=== PATIENT | female | born 1990 | race Caucasian/White ===

== ENCOUNTER → 2017-10-30 | Outpatient (CLI) | payer MEDICAID | END | disposition home or self-care (01) | LOC: RADPV 09:39 | PROVIDERS: ATTEND Family Medicine | DX: M85.88 Other specified disorders of bone density and structure, other site (principal); M81.0 Age-related osteoporosis without current pathological fracture; E55.9 Vitamin D deficiency, unspecified | CPT/HCPCS: 77080 ==

== ENCOUNTER 2019-04-18 04:53 | Inpatient (IN) | payer MEDICAID ==
[~2019-04-18] VITALS: Ht 149.9 cm; Wt 46.5 kg
[2019-04-18] VITALS (11 sets, daily range): BP systolic 89–122; BP diastolic 29–74
[~2019-04-18 04:53] MED LIST: ACID1GRA GT; CARV6 GT; CHOL200078 GT; FLUC100T GT; IPRA3AMP24 IH; LOPE-202 GT; METR500 GT; PARO10TA71 GT; RISP1 GT
[2019-04-18] MEDS ORDERED: SUCCINYLCHOLINE CHLORIDE 20 MG/ML 10 ML VIAL ONE (04:59)
[2019-04-18] MEDS ORDERED: ROCURONIUM BROMIDE 10 MG/ML 5 ML VIAL ONE ×2 (04:59→05:00)
[2019-04-18] MEDS ORDERED: RAPID SEQUENCE KIT [RSI] 1 EACH KIT ONE (04:59)
[2019-04-18] MEDS ORDERED: ONDANSETRON HCL 4 MG/2 ML VIAL IVP ONE (05:00)
[2019-04-18] MEDS ORDERED: SODIUM CHLORIDE 0.9% 1,000 ML IV ONE (05:00)
[2019-04-18] MEDS ORDERED: PIPERACILLIN SODIUM/TAZOBACTAM 4.5 GM in DEXTROSE 5%-WATER 100 ML IV ONE (05:30)
[2019-04-18] MEDS ORDERED: ETOMIDATE 2 MG/ML 10 ML VIAL IVP ONE (05:45)
[2019-04-18] MEDS ORDERED: ROCURONIUM BROMIDE 10 MG/ML 5 ML VIAL IVP ONE (05:45)
[2019-04-18 05:58] LABS: BASOPHILS % (AUTO) 0.3 % (0.0-2.0); EOSINOPHILS % (AUTO) 2.4 % (1.0-6.0); HEMOGLOBIN 12.6 g/dL (12.0-16.0); LYMPHOCYTES # (AUTO) 0.8 K/uL (1.0-4.8); LYMPHOCYTES % (AUTO) 23.3 % (22.0-44.0); MEAN CORPUSCULAR HEMOGLOBIN 27.8 pg (26.0-34.0); MEAN CORPUSCULAR HGB CONC 33.1 G/dL (31.0-37.0); MEAN CORPUSCULAR VOLUME 84 fL (80-100); MONOCYTES # (AUTO) 0.1 K/uL (0.1-1.0); MONOCYTES % (AUTO) 1.7 % (2.0-9.0); NEUTROPHILS # (AUTO) 2.5 K/uL (1.8-7.7); NEUTROPHILS % (AUTO) 72.3 % (40.0-70.0); PLATELET COUNT (AUTO) 218 K/uL (150-450); RED BLOOD CELL COUNT(AUTO) 4.52 MIL/uL (4.00-5.20); RED CELL DISTRIBUTION WIDTH 15.7 % (11.5-14.5)
[2019-04-18] MEDS ORDERED: ACETAMINOPHEN 325 MG TABLET PO PRN (06:00)
[2019-04-18] MEDS ORDERED: PROPOFOL 1000 MG/ISO-OSM 100 ML IV PRN (06:00)
[2019-04-18] MEDS ORDERED: VANCOMYCIN HCL 1 GM/D5% WATER 200 ML IV ONE (06:00)
[2019-04-18] MEDS ORDERED: ONDANSETRON HCL 4 MG/2 ML VIAL IVP PRN ×2 (06:00→13:30)
[2019-04-18 06:01] LABS: PROTHROMBIN TIME 10.5 SEC (9.4-11.6)
[2019-04-18] MEDS ORDERED: PIPERACILLIN/TAZO 3.375 GM/D5W 50 ML IV ONE (06:15)
[2019-04-18 06:26] LABS: ANION GAP 4 mmol/L (8-16); CALCIUM, TOTAL 8.9 mg/dL (8.8-10.5); CARBON DIOXIDE 33 mmol/L (22-29); CHLORIDE 100 mmol/L (98-107); CREATININE 0.38 mg/dL (0.60-1.30); GLOMERULAR FILTR. RATE CALC > 60 mL/min (>60); GLUCOSE,RANDOM 131 mg/dL (70-110); SODIUM SERUM 137 mmol/L (136-145); UREA NITROGEN, BLOOD 16 mg/dL (7-18)
[2019-04-18 06:34] LABS: LACTIC ACID 0.8 mmol/L (0.4-2.0)
[2019-04-18 06:37] LABS: ALANINE AMINOTRANSFERASE 48 U/L (12-78); ALBUMIN 2.9 g/dL (3.4-5.0); ALKALINE PHOSPHATASE 236 U/L (46-116); ASPARTATE AMINOTRANSFERASE 27 U/L (15-37); BILIRUBIN,TOTAL 0.5 mg/dL (0.1-1.0); HCG,QUANTITATIVE < 1 mIU/mL (0-6); TOTAL PROTEIN, SERUM 7.2 g/dL (6.4-8.2)
[2019-04-18] MEDS ORDERED: SODIUM CHLORIDE 0.9% 500 ML IV ONE (07:15)
[2019-04-18] MEDS ORDERED: LORazepam 2 MG/ML VIAL IVP ONE (08:30)
[2019-04-18 12:37] LABS: ABG BASE EXCESS 1.3 mmol/L (-2.0-3.0); ABG CARBOXYHEMOGLOBIN 0.8 % (0.0-1.5); ABG HCO3 25.4 mmol/L (22.0-26.0); ABG METHEMOGLOBIN 0.3 % (0.0-1.5); ABG OXYGEN CONTENT 17.4 mL/dL (15.0-23.0); ABG OXYGEN SATURATION 99.3 % (95.0-98.0); ABG OXYHEMOGLOBIN 98.2 % (94.0-100.0); ABG PCO2 46 mmHg (35-45); ABG PH 7.375 (7.350-7.450); ABG TOTAL HEMOGLOBIN 12.2 G/dL (12.0-18.0); PO2, ARTERIAL BG 253.6 mmHg (92.0-100.0); SOURCE, BLOOD GAS ARTERIAL; TEMPERATURE, FAHRENHEIT, BG 100.6 FAHREN (96.0-98.6)
[2019-04-18 12:38] LABS: O2 DEVICE,BLOOD GAS VENTILATOR (ROOM AIR); PEEP,BG 5 cm H2O; SITE, BLOOD GAS RT RADIAL; VT, ABG 400 ml
[2019-04-18] MEDS ORDERED: HYDROCODONE/ACETAMINOPHEN 5-325 MG TABLET PO PRN (13:30)
[2019-04-18] MEDS ORDERED: ZOLPIDEM TARTRATE 5 MG TABLET PO PRN (13:30)
[2019-04-18] MEDS ORDERED: MAGNESIUM HYDROXIDE SUSPENSION 30 ML UDCUP PO PRN (13:30)
[2019-04-18] MEDS ORDERED: ALBUTEROL SULFATE 2.5 MG/0.5 ML NEB SOLUTION NEB PRN (13:30)
[2019-04-18] MEDS ORDERED: MORPHINE SULFATE 2 MG/ML SYRINGE IVP PRN (13:30)
[2019-04-18] MEDS ORDERED: BISACODYL 10 MG RECTAL RECTAL SUPPOSITORY PR PRN (13:30)
[2019-04-18] MEDS ORDERED: IPRATROPIUM BROMIDE 0.5 MG/2.5 ML NEB SOLUTION NEB PRN (13:30)
[2019-04-18] MEDS: ALBUTEROL SULFATE 2.5 MG/0.5 ML NEB SOLUTION NEB SCH ×2 (14:00→19:46)
[2019-04-18] MEDS: IPRATROPIUM BROMIDE 0.5 MG/2.5 ML NEB SOLUTION NEB SCH ×2 (14:00→19:46)
[2019-04-18] MEDS: CefTRIAXone 1 GM/DEXTROSE 50 ML IV SCH (14:48)
[2019-04-18] MEDS: PIPERACILLIN/TAZO 3.375 GM/D5W 50 ML IV SCH ×2 (14:49→20:03)
[2019-04-18] MEDS: SODIUM CHLORIDE 0.9% 1,000 ML IV SCH (16:07)
[2019-04-18] MEDS ORDERED: ETOMIDATE 2 MG/ML 10 ML VIAL IV ONE (17:01)
[2019-04-18] MEDS: VANCOMYCIN HCL 750 MG in DEXTROSE 5%-WATER 250 ML IV SCH ×2 (17:21→22:55)
[2019-04-18] MEDS: MethylPREDNISolone SOD SUCC 125 MG/2 ML VIAL IVP SCH (17:22)
[2019-04-18] MEDS: HEPARIN SODIUM,PORCINE 5,000 UNITS/ML VIAL SQ SCH (17:22)
[2019-04-18] MEDS: DOCUSATE SODIUM 100 MG CAPSULE PO SCH (20:51)
[2019-04-19] VITALS: BP 108/68
[2019-04-19] MEDS: HEPARIN SODIUM,PORCINE 5,000 UNITS/ML VIAL SQ SCH ×3 (00:06→16:12)
[2019-04-19] MEDS: MethylPREDNISolone SOD SUCC 125 MG/2 ML VIAL IVP SCH ×4 (00:07→18:17)
[2019-04-19] MEDS: PIPERACILLIN/TAZO 3.375 GM/D5W 50 ML IV SCH ×3 (01:53→13:43)
[2019-04-19] MEDS: ALBUTEROL SULFATE 2.5 MG/0.5 ML NEB SOLUTION NEB SCH ×4 (02:07→19:17)
[2019-04-19] MEDS: IPRATROPIUM BROMIDE 0.5 MG/2.5 ML NEB SOLUTION NEB SCH ×4 (02:07→19:17)
[2019-04-19 04:00] VITALS: BP 108/68
[2019-04-19] MEDS: SODIUM CHLORIDE 0.9% 1,000 ML IV SCH ×2 (04:15→18:21)
[2019-04-19 05:43] LABS: ANION GAP 7 mmol/L (8-16); CALCIUM, TOTAL 8.6 mg/dL (8.8-10.5); CARBON DIOXIDE 29 mmol/L (22-29); CHLORIDE 104 mmol/L (98-107); CREATININE 0.38 mg/dL (0.60-1.30); GLOMERULAR FILTR. RATE CALC > 60 mL/min (>60); GLUCOSE,RANDOM 132 mg/dL (70-110); SODIUM SERUM 140 mmol/L (136-145); UREA NITROGEN, BLOOD 7 mg/dL (7-18); VANCOMYCIN,RANDOM 15.9 mcg/mL (25.0-50.0)
[2019-04-19 05:48] LABS: POTASSIUM 2.8 mmol/L (3.5-5.1)
[2019-04-19] MEDS: VANCOMYCIN HCL 750 MG in DEXTROSE 5%-WATER 250 ML IV SCH (06:33)
[2019-04-19] MEDS: POTASSIUM CHL 10 MEQ/WATER 50 ML IV PRN ×4 (06:40→10:51)
[2019-04-19] MEDS: PROPOFOL 1000 MG/ISO-OSM 100 ML IV PRN ×3 (06:40→20:14)
[2019-04-19 08:00] VITALS: BP 105/67
[2019-04-19] MEDS: DOCUSATE SODIUM 100 MG CAPSULE PO SCH ×2 (08:13→20:14)
[2019-04-19] MEDS: PANTOPRAZOLE SODIUM 40 MG DR TABLET PO SCH (08:13)
[2019-04-19 11:03] LABS: ABG A-A DIFF O2 112.3 mmHg (10-20.0); ABG BASE EXCESS 5.6 mmol/L (-2.0-3.0); ABG CARBOXYHEMOGLOBIN 0.2 % (0.0-1.5); ABG HCO3 28.8 mmol/L (22.0-26.0); ABG METHEMOGLOBIN 0.3 % (0.0-1.5); ABG OXYGEN CONTENT 15.5 mL/dL (15.0-23.0); ABG OXYGEN SATURATION 96.7 % (95.0-98.0); ABG OXYHEMOGLOBIN 96.2 % (94.0-100.0); ABG PCO2 46 mmHg (35-45); ABG PH 7.432 (7.350-7.450); ABG TOTAL HEMOGLOBIN 11.4 G/dL (12.0-18.0); PO2, ARTERIAL BG 84.8 mmHg (92.0-100.0); SOURCE, BLOOD GAS ARTERIAL; TEMPERATURE, FAHRENHEIT, BG 97.3 FAHREN (96.0-98.6)
[2019-04-19 11:06] LABS: O2 DEVICE,BLOOD GAS VENTILATOR (ROOM AIR); PEEP,BG 5 cm H2O; SITE, BLOOD GAS RT RADIAL; VT, ABG 400 ml
[2019-04-19 12:00] VITALS: BP 111/59
[2019-04-19] MEDS: CefTRIAXone 1 GM/DEXTROSE 50 ML IV SCH (13:44)
[2019-04-19] MEDS ORDERED: VANCOMYCIN HCL 1 GM/D5% WATER 200 ML IV SCH (15:00)
[2019-04-19 16:00] VITALS: BP_SYST 111; BP_SYST 118; BP_DIAS 66
[2019-04-19] MEDS: MetroNIDAZOLE 500 MG TABLET PO SCH (16:12)
[2019-04-19 20:00] VITALS: BP 126/74
[2019-04-19 20:14] LABS: APPEARANCE,URINE CLEAR (CLEAR); BILIRUBIN,URINE NEGATIVE (NEGATIVE); GLUCOSE, URINE (UA) NEGATIVE (NEGATIVE); KETONES,URINE 15 mg/dL (NEGATIVE); LEUKOCYTE ESTERASE ,URINE NEGATIVE (NEGATIVE); NITRATE,URINE NEGATIVE (NEGATIVE); OCCULT BLOOD,URINE NEGATIVE (NEGATIVE); PH,URINE 5.5 (5.0-8.0); PROTEIN,URINE TRACE (NEGATIVE); UROBILINOGEN,URINE 0.2 mg/dL (<=1.0)
[2019-04-19 20:20] LABS: BACTERIA,URINE Rare /HPF (None Seen); SQUAMOUS EPITHELIAL CELL,UR Few /LPF (None Seen)
[2019-04-19 20:24] LABS: INFLUENZA TYPE A NEGATIVE FOR TYPE A (NEGATIVE); INFLUENZA TYPE B NEGATIVE FOR TYPE B (NEGATIVE)
[2019-04-20] VITALS: BP 125/72
[2019-04-20] MEDS: HEPARIN SODIUM,PORCINE 5,000 UNITS/ML VIAL SQ SCH ×3 (00:15→20:37)
[2019-04-20] MEDS: MetroNIDAZOLE 500 MG TABLET PO SCH ×4 (00:15→23:08)
[2019-04-20] MEDS: MethylPREDNISolone SOD SUCC 125 MG/2 ML VIAL IVP SCH ×5 (00:16→23:08)
[2019-04-20 04:00] VITALS: BP 134/98
[2019-04-20] MEDS: SODIUM CHLORIDE 0.9% 1,000 ML IV SCH ×2 (05:22→17:22)
[2019-04-20 05:40] LABS: ANION GAP 9 mmol/L (8-16); CALCIUM, TOTAL 8.8 mg/dL (8.8-10.5); CARBON DIOXIDE 26 mmol/L (22-29); CHLORIDE 110 mmol/L (98-107); CREATININE 0.24 mg/dL (0.60-1.30); GLOMERULAR FILTR. RATE CALC > 60 mL/min (>60); GLUCOSE,RANDOM 115 mg/dL (70-110); POTASSIUM 3.5 mmol/L (3.5-5.1); SODIUM SERUM 145 mmol/L (136-145); UREA NITROGEN, BLOOD 15 mg/dL (7-18)
[2019-04-20] MEDS: POTASSIUM CHLORIDE 10% 40 MEQ/30 ML LIQUID UDCUP GT PRN ×2 (07:00→23:11)
[2019-04-20] MEDS: IPRATROPIUM BROMIDE 0.5 MG/2.5 ML NEB SOLUTION NEB SCH ×3 (07:20→19:44)
[2019-04-20] MEDS: ALBUTEROL SULFATE 2.5 MG/0.5 ML NEB SOLUTION NEB SCH ×3 (07:20→19:44)
[2019-04-20 08:00] VITALS: BP 117/62
[2019-04-20] MEDS: PANTOPRAZOLE SODIUM 40 MG DR TABLET PO SCH (08:01)
[2019-04-20] MEDS: DOCUSATE SODIUM 100 MG CAPSULE PO SCH ×2 (08:01→20:37)
[2019-04-20 12:00] VITALS: BP 116/54
[2019-04-20] MEDS: CefTRIAXone 1 GM/DEXTROSE 50 ML IV SCH (15:12)
[2019-04-20 16:00] VITALS: BP 143/86
[2019-04-20] MEDS ORDERED: SODIUM CHLORIDE 0.9% 250 ML IV ONE (17:29)
[2019-04-20] MEDS: PROPOFOL 1000 MG/ISO-OSM 100 ML IV PRN (17:39)
[2019-04-20 20:00] VITALS: BP 150/79
[2019-04-20] MEDS: LORazepam 2 MG/ML VIAL IM PRN (20:27)
[2019-04-20] MEDS: METOCLOPRAMIDE HCL 5 MG TABLET PEG SCH (20:37)
[2019-04-20] MEDS ORDERED: PNEUMOCOCCAL VACCINE POLYVALENT 0.5 ML VIAL [PPSV23] IM ONE (22:00)
[2019-04-20] MEDS ORDERED: INFLUENZA VIRUS VACCINE QVS 2019-20 (3YR+)/PF 60 MCG/0.5 ML SYRINGE IM ONE (22:00)
[2019-04-21] VITALS: BP 90/49
[2019-04-21] MEDS: PROPOFOL 1000 MG/ISO-OSM 100 ML IV PRN (01:29)
[2019-04-21] MEDS: ALBUTEROL SULFATE 2.5 MG/0.5 ML NEB SOLUTION NEB SCH ×4 (01:39→20:09)
[2019-04-21] MEDS: IPRATROPIUM BROMIDE 0.5 MG/2.5 ML NEB SOLUTION NEB SCH ×4 (01:39→20:09)
[2019-04-21] MEDS: LORazepam 2 MG/ML VIAL IM PRN ×3 (02:58→23:41)
[2019-04-21 04:00] VITALS: BP 109/62
[2019-04-21 05:20] LABS: BASOPHILS % (AUTO) 0.1 % (0.0-2.0); EOSINOPHILS % (AUTO) 0 % (1.0-6.0); HEMATOCRIT 33.6 % (36-46); HEMOGLOBIN 10.5 g/dL (12.0-16.0); LYMPHOCYTES # (AUTO) 2.3 K/uL (1.0-4.8); LYMPHOCYTES % (AUTO) 11.3 % (22.0-44.0); MEAN CORPUSCULAR HEMOGLOBIN 26.4 pg (26.0-34.0); MEAN CORPUSCULAR HGB CONC 31.1 G/dL (31.0-37.0); MEAN CORPUSCULAR VOLUME 85 fL (80-100); MONOCYTES # (AUTO) 0.9 K/uL (0.1-1.0); MONOCYTES % (AUTO) 4.4 % (2.0-9.0); NEUTROPHILS # (AUTO) 17.1 K/uL (1.8-7.7); NEUTROPHILS % (AUTO) 84.2 % (40.0-70.0); PLATELET COUNT (AUTO) 232 K/uL (150-450); RED BLOOD CELL COUNT(AUTO) 3.97 MIL/uL (4.00-5.20); RED CELL DISTRIBUTION WIDTH 15.3 % (11.5-14.5)
[2019-04-21] MEDS: MethylPREDNISolone SOD SUCC 125 MG/2 ML VIAL IVP SCH ×4 (05:21→23:13)
[2019-04-21 05:35] LABS: ANION GAP 8 mmol/L (8-16); CALCIUM, TOTAL 8.5 mg/dL (8.8-10.5); CARBON DIOXIDE 27 mmol/L (22-29); CHLORIDE 113 mmol/L (98-107); CREATININE 0.26 mg/dL (0.60-1.30); GLOMERULAR FILTR. RATE CALC > 60 mL/min (>60); GLUCOSE,RANDOM 143 mg/dL (70-110); SODIUM SERUM 148 mmol/L (136-145); UREA NITROGEN, BLOOD 16 mg/dL (7-18)
[2019-04-21] MEDS: SODIUM CHLORIDE 0.9% 1,000 ML IV SCH ×2 (05:37→19:05)
[2019-04-21 08:00] VITALS: BP 148/85
[2019-04-21 08:15] LABS: VANCOMYCIN,RANDOM < 0.1 mcg/mL (25.0-50.0)
[2019-04-21] MEDS: PANTOPRAZOLE SODIUM 40 MG DR TABLET PO SCH (08:54)
[2019-04-21] MEDS: METOCLOPRAMIDE HCL 5 MG TABLET PEG SCH ×2 (08:54→20:32)
[2019-04-21] MEDS: MetroNIDAZOLE 500 MG TABLET PO SCH ×3 (08:54→23:13)
[2019-04-21] MEDS: DOCUSATE SODIUM 100 MG CAPSULE PO SCH ×2 (08:54→20:32)
[2019-04-21] MEDS: HEPARIN SODIUM,PORCINE 5,000 UNITS/ML VIAL SQ SCH ×2 (08:55→20:32)
[2019-04-21 09:30] LABS: ABG BASE EXCESS -1.7 mmol/L (-2.0-3.0); ABG CARBOXYHEMOGLOBIN 0.1 % (0.0-1.5); ABG HCO3 23.1 mmol/L (22.0-26.0); ABG METHEMOGLOBIN 0.3 % (0.0-1.5); ABG OXYGEN CONTENT 14.7 mL/dL (15.0-23.0); ABG OXYGEN SATURATION 96.6 % (95.0-98.0); ABG OXYHEMOGLOBIN 96.2 % (94.0-100.0); ABG PCO2 41 mmHg (35-45); ABG PH 7.379 (7.350-7.450); ABG TOTAL HEMOGLOBIN 10.8 G/dL (12.0-18.0); O2 DEVICE,BLOOD GAS VENTILATOR (ROOM AIR); PEEP,BG 5 cm H2O; PO2, ARTERIAL BG 90.4 mmHg (92.0-100.0); SITE, BLOOD GAS RT RADIAL; SOURCE, BLOOD GAS ARTERIAL; TEMPERATURE, FAHRENHEIT, BG 98.6 FAHREN (96.0-98.6); VT, ABG 400 ml
[2019-04-21 12:00] VITALS: BP 128/75
[2019-04-21] MEDS: CefTRIAXone 1 GM/DEXTROSE 50 ML IV SCH (13:54)
[2019-04-21 16:00] VITALS: BP 124/77
[2019-04-21] MEDS: ACETAMINOPHEN 325 MG TABLET PO PRN (16:42)
[2019-04-21 20:00] VITALS: BP 160/78
[2019-04-22] VITALS: BP 120/70
[2019-04-22] MEDS: PROPOFOL 1000 MG/ISO-OSM 100 ML IV PRN ×2 (01:09→14:22)
[2019-04-22] MEDS: ALBUTEROL SULFATE 2.5 MG/0.5 ML NEB SOLUTION NEB SCH ×4 (02:23→19:29)
[2019-04-22] MEDS: IPRATROPIUM BROMIDE 0.5 MG/2.5 ML NEB SOLUTION NEB SCH ×4 (02:23→19:28)
[2019-04-22 04:00] VITALS: BP 139/61
[2019-04-22] MEDS: MethylPREDNISolone SOD SUCC 125 MG/2 ML VIAL IVP SCH (05:38)
[2019-04-22 05:41] LABS: BASOPHILS % (AUTO) 0.5 % (0.0-2.0); EOSINOPHILS % (AUTO) 0 % (1.0-6.0); HEMATOCRIT 32.6 % (36-46); HEMOGLOBIN 10.5 g/dL (12.0-16.0); LYMPHOCYTES # (AUTO) 2.7 K/uL (1.0-4.8); LYMPHOCYTES % (AUTO) 18.9 % (22.0-44.0); MEAN CORPUSCULAR HEMOGLOBIN 26.9 pg (26.0-34.0); MEAN CORPUSCULAR HGB CONC 32.2 G/dL (31.0-37.0); MEAN CORPUSCULAR VOLUME 84 fL (80-100); MONOCYTES # (AUTO) 1.1 K/uL (0.1-1.0); MONOCYTES % (AUTO) 7.7 % (2.0-9.0); NEUTROPHILS # (AUTO) 10.6 K/uL (1.8-7.7); NEUTROPHILS % (AUTO) 72.9 % (40.0-70.0); PLATELET COUNT (AUTO) 235 K/uL (150-450); RED BLOOD CELL COUNT(AUTO) 3.89 MIL/uL (4.00-5.20); RED CELL DISTRIBUTION WIDTH 15.6 % (11.5-14.5)
[2019-04-22 05:50] LABS: ANION GAP 4 mmol/L (8-16); CARBON DIOXIDE 31 mmol/L (22-29); CHLORIDE 110 mmol/L (98-107); CREATININE 0.36 mg/dL (0.60-1.30); GLOMERULAR FILTR. RATE CALC > 60 mL/min (>60); GLUCOSE,RANDOM 159 mg/dL (70-110); POTASSIUM 3.4 mmol/L (3.5-5.1); SODIUM SERUM 145 mmol/L (136-145); UREA NITROGEN, BLOOD 13 mg/dL (7-18)
[2019-04-22] MEDS: SODIUM CHLORIDE 0.9% 1,000 ML IV SCH ×2 (06:27→19:59)
[2019-04-22] MEDS ORDERED: SODIUM CHLORIDE 0.9% 250 ML IV ONE (06:39)
[2019-04-22] MEDS: POTASSIUM CHL 10 MEQ/WATER 50 ML IV PRN ×3 (06:41→09:18)
[2019-04-22 08:00] VITALS: BP 140/93
[2019-04-22] MEDS: DOCUSATE SODIUM 100 MG CAPSULE PO SCH ×2 (08:45→21:27)
[2019-04-22] MEDS: PANTOPRAZOLE SODIUM 40 MG DR TABLET PO SCH (08:45)
[2019-04-22] MEDS: MetroNIDAZOLE 500 MG TABLET PO SCH ×2 (08:45→16:00)
[2019-04-22] MEDS: METOCLOPRAMIDE HCL 5 MG TABLET PEG SCH ×2 (08:45→21:27)
[2019-04-22] MEDS: HEPARIN SODIUM,PORCINE 5,000 UNITS/ML VIAL SQ SCH ×2 (08:46→21:27)
[2019-04-22 12:00] VITALS: BP 115/65
[2019-04-22] MEDS ORDERED: LORazepam 2 MG/ML VIAL IM PRN (12:15)
[2019-04-22] MEDS: MethylPREDNISolone SOD SUCC 40 MG/ML VIAL IVP SCH ×2 (12:25→18:47)
[2019-04-22] MEDS: ACETAMINOPHEN 325 MG TABLET PO PRN (12:26)
[2019-04-22] MEDS ORDERED: LORazepam 2 MG/ML VIAL IVP PRN (13:45)
[2019-04-22] MEDS: CefTRIAXone 1 GM/DEXTROSE 50 ML IV SCH (14:14)
[2019-04-22 15:35] LABS: LEGIONELLA PNEUMO AG URINE Negative (Negative); ORGANISM ID Not indicated.; S PNEUMO SOURCE Urine; STREP PNEUMONIAE AG URINE Negative (Negative); STREP.PNEUMO BODY FLUID CULT. Not Indicated
[2019-04-22 16:00] VITALS: BP 152/88
[2019-04-22] MEDS: MULTIVITAMINS, THERAPEUTIC 15 ML UDCUP PEG SCH (19:58)
[2019-04-22 20:00] VITALS: BP 122/61
[2019-04-23] VITALS: BP 118/78
[2019-04-23] MEDS: MetroNIDAZOLE 500 MG TABLET PO SCH ×4 (00:13→23:49)
[2019-04-23] MEDS: MethylPREDNISolone SOD SUCC 40 MG/ML VIAL IVP SCH ×5 (00:13→23:49)
[2019-04-23] MEDS: IPRATROPIUM BROMIDE 0.5 MG/2.5 ML NEB SOLUTION NEB SCH ×4 (01:53→19:29)
[2019-04-23] MEDS: ALBUTEROL SULFATE 2.5 MG/0.5 ML NEB SOLUTION NEB SCH ×4 (01:54→19:29)
[2019-04-23] MEDS: PROPOFOL 1000 MG/ISO-OSM 100 ML IV PRN ×3 (02:26→18:59)
[2019-04-23 04:00] VITALS: BP 115/59
[2019-04-23 05:52] LABS: BASOPHILS % (AUTO) 0.1 % (0.0-2.0); EOSINOPHILS % (AUTO) 0.1 % (1.0-6.0); HEMATOCRIT 33.4 % (36-46); HEMOGLOBIN 10.7 g/dL (12.0-16.0); LYMPHOCYTES # (AUTO) 3.4 K/uL (1.0-4.8); LYMPHOCYTES % (AUTO) 20.7 % (22.0-44.0); MEAN CORPUSCULAR HEMOGLOBIN 26.8 pg (26.0-34.0); MEAN CORPUSCULAR HGB CONC 32.1 G/dL (31.0-37.0); MEAN CORPUSCULAR VOLUME 84 fL (80-100); MONOCYTES # (AUTO) 0.9 K/uL (0.1-1.0); MONOCYTES % (AUTO) 5.5 % (2.0-9.0); NEUTROPHILS # (AUTO) 12.3 K/uL (1.8-7.7); NEUTROPHILS % (AUTO) 73.6 % (40.0-70.0); PLATELET COUNT (AUTO) 241 K/uL (150-450); RED CELL DISTRIBUTION WIDTH 15.8 % (11.5-14.5)
[2019-04-23 06:07] LABS: ANION GAP 4 mmol/L (8-16); CARBON DIOXIDE 33 mmol/L (22-29); CHLORIDE 107 mmol/L (98-107); CREATININE 0.27 mg/dL (0.60-1.30); GLOMERULAR FILTR. RATE CALC > 60 mL/min (>60); GLUCOSE,RANDOM 150 mg/dL (70-110); POTASSIUM 3.3 mmol/L (3.5-5.1); SODIUM SERUM 144 mmol/L (136-145); UREA NITROGEN, BLOOD 7 mg/dL (7-18)
[2019-04-23] MEDS: POTASSIUM CHLORIDE 10% 40 MEQ/30 ML LIQUID UDCUP GT PRN (06:15)
[2019-04-23] MEDS: SODIUM CHLORIDE 0.9% 1,000 ML IV SCH ×2 (07:24→20:47)
[2019-04-23] MEDS: LORazepam 2 MG/ML VIAL IVP PRN (07:53)
[2019-04-23 08:00] VITALS: BP 146/74
[2019-04-23] MEDS: MULTIVITAMINS, THERAPEUTIC 15 ML UDCUP PEG SCH (08:19)
[2019-04-23] MEDS: PANTOPRAZOLE SODIUM 40 MG DR TABLET PO SCH (08:20)
[2019-04-23] MEDS: HEPARIN SODIUM,PORCINE 5,000 UNITS/ML VIAL SQ SCH ×2 (08:20→20:47)
[2019-04-23] MEDS: DOCUSATE SODIUM 100 MG CAPSULE PO SCH ×3 (08:21→20:50)
[2019-04-23 10:12] LABS: ABG A-A DIFF O2 114.9 mmHg (10-20.0); ABG BASE EXCESS 4.8 mmol/L (-2.0-3.0); ABG CARBOXYHEMOGLOBIN 0.5 % (0.0-1.5); ABG HCO3 28.3 mmol/L (22.0-26.0); ABG METHEMOGLOBIN 0.2 % (0.0-1.5); ABG OXYGEN CONTENT 16.4 mL/dL (15.0-23.0); ABG OXYGEN SATURATION 96.1 % (95.0-98.0); ABG OXYHEMOGLOBIN 95.4 % (94.0-100.0); ABG PCO2 44 mmHg (35-45); ABG PH 7.441 (7.350-7.450); ABG TOTAL HEMOGLOBIN 12.2 G/dL (12.0-18.0); PO2, ARTERIAL BG 83.7 mmHg (92.0-100.0); SOURCE, BLOOD GAS ARTERIAL; TEMPERATURE, FAHRENHEIT, BG 99.1 FAHREN (96.0-98.6)
[2019-04-23 10:13] LABS: O2 DEVICE,BLOOD GAS VENTILATOR (ROOM AIR); PEEP,BG 5 cm H2O; SITE, BLOOD GAS RT RADIAL; VT, ABG 500 ml
[2019-04-23 12:00] VITALS: BP 102/57
[2019-04-23] MEDS: CeFAZolin 2 GM/DEXTROSE 50 ML IV SCH ×2 (15:03→22:14)
[2019-04-23 16:00] VITALS: BP 109/59
[2019-04-23 20:00] VITALS: BP 109/74
[2019-04-23] MEDS ORDERED: SODIUM CHLORIDE 0.9% 250 ML IV ONE (23:09)
[2019-04-24] VITALS (7 sets, daily range): BP systolic 107–145; BP diastolic 41–92
[2019-04-24] MEDS: ALBUTEROL SULFATE 2.5 MG/0.5 ML NEB SOLUTION NEB SCH ×4 (02:12→19:48)
[2019-04-24] MEDS: IPRATROPIUM BROMIDE 0.5 MG/2.5 ML NEB SOLUTION NEB SCH ×4 (02:12→19:48)
[2019-04-24] MEDS: ACETAMINOPHEN 325 MG TABLET PO PRN (02:55)
[2019-04-24] MEDS: PROPOFOL 1000 MG/ISO-OSM 100 ML IV PRN (03:44)
[2019-04-24 05:32] LABS: BASOPHILS % (AUTO) 0.1 % (0.0-2.0); EOSINOPHILS % (AUTO) 0.1 % (1.0-6.0); HEMATOCRIT 34.9 % (36-46); HEMOGLOBIN 11.1 g/dL (12.0-16.0); LYMPHOCYTES # (AUTO) 3.2 K/uL (1.0-4.8); LYMPHOCYTES % (AUTO) 20.8 % (22.0-44.0); MEAN CORPUSCULAR HEMOGLOBIN 26.5 pg (26.0-34.0); MEAN CORPUSCULAR HGB CONC 31.8 G/dL (31.0-37.0); MEAN CORPUSCULAR VOLUME 83 fL (80-100); MONOCYTES # (AUTO) 0.9 K/uL (0.1-1.0); NEUTROPHILS # (AUTO) 11.4 K/uL (1.8-7.7); PLATELET COUNT (AUTO) 292 K/uL (150-450); RED CELL DISTRIBUTION WIDTH 16.2 % (11.5-14.5)
[2019-04-24 05:39] LABS: ANION GAP 4 mmol/L (8-16); CALCIUM, TOTAL 8.3 mg/dL (8.8-10.5); CARBON DIOXIDE 34 mmol/L (22-29); CHLORIDE 106 mmol/L (98-107); CREATININE 0.22 mg/dL (0.60-1.30); GLOMERULAR FILTR. RATE CALC > 60 mL/min (>60); GLUCOSE,RANDOM 150 mg/dL (70-110); POTASSIUM 3.3 mmol/L (3.5-5.1); SODIUM SERUM 144 mmol/L (136-145); UREA NITROGEN, BLOOD 9 mg/dL (7-18)
[2019-04-24] MEDS: CeFAZolin 2 GM/DEXTROSE 50 ML IV SCH ×3 (05:39→21:42)
[2019-04-24] MEDS: MethylPREDNISolone SOD SUCC 40 MG/ML VIAL IVP SCH ×3 (05:39→18:46)
[2019-04-24] MEDS: POTASSIUM CHLORIDE 10% 40 MEQ/30 ML LIQUID UDCUP GT PRN ×2 (06:33→09:33)
[2019-04-24] MEDS: MetroNIDAZOLE 500 MG TABLET PO SCH ×2 (08:59→16:20)
[2019-04-24] MEDS: PANTOPRAZOLE SODIUM 40 MG DR TABLET PO SCH (09:00)
[2019-04-24] MEDS: DOCUSATE SODIUM 100 MG CAPSULE PO SCH ×2 (09:00→21:00)
[2019-04-24] MEDS: MULTIVITAMINS, THERAPEUTIC 15 ML UDCUP PEG SCH (09:00)
[2019-04-24] MEDS: HEPARIN SODIUM,PORCINE 5,000 UNITS/ML VIAL SQ SCH ×2 (09:00→21:00)
[2019-04-24] MEDS: SODIUM CHLORIDE 0.9% 1,000 ML IV SCH ×2 (09:01→21:42)
[2019-04-24 09:26] LABS: ABG A-A DIFF O2 119.1 mmHg (10-20.0); ABG BASE EXCESS 9.4 mmol/L (-2.0-3.0); ABG CARBOXYHEMOGLOBIN 0.7 % (0.0-1.5); ABG HCO3 31.8 mmol/L (22.0-26.0); ABG METHEMOGLOBIN 0.3 % (0.0-1.5); ABG OXYGEN CONTENT 17.2 mL/dL (15.0-23.0); ABG OXYGEN SATURATION 94.7 % (95.0-98.0); ABG OXYHEMOGLOBIN 93.8 % (94.0-100.0); ABG PCO2 49 mmHg (35-45); ABG PH 7.453 (7.350-7.450); CPAP, BG 5 cm H2O; O2 DEVICE,BLOOD GAS VENTILATOR (ROOM AIR); PO2, ARTERIAL BG 73.9 mmHg (92.0-100.0); PRESSURE SUPPORT, BG 10 cm H2O; SITE, BLOOD GAS RT RADIAL; SOURCE, BLOOD GAS ARTERIAL; TEMPERATURE, FAHRENHEIT, BG 98.7 FAHREN (96.0-98.6); VENT MODE, BG CPAP (ROOM AIR)
[2019-04-24 14:31] LABS: POTASSIUM 4.4 mmol/L (3.5-5.1)
[2019-04-24] MEDS: LORazepam 2 MG/ML VIAL IVP PRN (16:18)
[2019-04-25] VITALS (7 sets, daily range): BP systolic 99–130; BP diastolic 53–83
[2019-04-25] MEDS: MetroNIDAZOLE 500 MG TABLET PO SCH ×3 (00:13→15:11)
[2019-04-25] MEDS: MethylPREDNISolone SOD SUCC 40 MG/ML VIAL IVP SCH ×4 (00:13→17:58)
[2019-04-25] MEDS: IPRATROPIUM BROMIDE 0.5 MG/2.5 ML NEB SOLUTION NEB SCH ×4 (02:24→20:18)
[2019-04-25] MEDS: ALBUTEROL SULFATE 2.5 MG/0.5 ML NEB SOLUTION NEB SCH ×4 (02:24→20:18)
[2019-04-25 04:55] LABS: BASOPHILS % (AUTO) 0.1 % (0.0-2.0); EOSINOPHILS % (AUTO) 0.1 % (1.0-6.0); HEMATOCRIT 37.5 % (36-46); HEMOGLOBIN 11.9 g/dL (12.0-16.0); LYMPHOCYTES # (AUTO) 2.3 K/uL (1.0-4.8); LYMPHOCYTES % (AUTO) 12.5 % (22.0-44.0); MEAN CORPUSCULAR HEMOGLOBIN 26.7 pg (26.0-34.0); MEAN CORPUSCULAR HGB CONC 31.8 G/dL (31.0-37.0); MEAN CORPUSCULAR VOLUME 84 fL (80-100); MONOCYTES # (AUTO) 0.9 K/uL (0.1-1.0); MONOCYTES % (AUTO) 5.2 % (2.0-9.0); NEUTROPHILS # (AUTO) 14.9 K/uL (1.8-7.7); NEUTROPHILS % (AUTO) 82.1 % (40.0-70.0); PLATELET COUNT (AUTO) 374 K/uL (150-450); RED BLOOD CELL COUNT(AUTO) 4.46 MIL/uL (4.00-5.20); RED CELL DISTRIBUTION WIDTH 15.8 % (11.5-14.5)
[2019-04-25 05:07] LABS: ANION GAP 3 mmol/L (8-16); CALCIUM, TOTAL 8.6 mg/dL (8.8-10.5); CARBON DIOXIDE 31 mmol/L (22-29); CHLORIDE 104 mmol/L (98-107); CREATININE 0.33 mg/dL (0.60-1.30); GLOMERULAR FILTR. RATE CALC > 60 mL/min (>60); GLUCOSE,RANDOM 149 mg/dL (70-110); POTASSIUM 3.9 mmol/L (3.5-5.1); SODIUM SERUM 138 mmol/L (136-145); UREA NITROGEN, BLOOD 9 mg/dL (7-18)
[2019-04-25] MEDS: POTASSIUM CHLORIDE 10% 40 MEQ/30 ML LIQUID UDCUP GT PRN (05:33)
[2019-04-25] MEDS: CeFAZolin 2 GM/DEXTROSE 50 ML IV SCH ×3 (06:02→21:02)
[2019-04-25] MEDS: PANTOPRAZOLE SODIUM 40 MG DR TABLET PO SCH (08:22)
[2019-04-25] MEDS: HEPARIN SODIUM,PORCINE 5,000 UNITS/ML VIAL SQ SCH ×2 (08:22→20:48)
[2019-04-25] MEDS: DOCUSATE SODIUM 100 MG CAPSULE PO SCH ×2 (08:23→20:46)
[2019-04-25] MEDS: MULTIVITAMINS, THERAPEUTIC 15 ML UDCUP PEG SCH (08:23)
[2019-04-25 13:10] LABS: C.DIFF TOXINS A&B, Stool Negative (Negative)
[2019-04-25 13:13] LABS: C.DIFF GDH ANTIGEN, Stool Positive (Negative)
[2019-04-25] MEDS ORDERED: SODIUM CHLORIDE 0.9% 250 ML IV ONE (20:53)
[2019-04-26] MEDS: MetroNIDAZOLE 500 MG TABLET PO SCH ×3 (00:56→16:26)
[2019-04-26] MEDS: MethylPREDNISolone SOD SUCC 40 MG/ML VIAL IVP SCH ×3 (00:56→11:24)
[2019-04-26 00:58] VITALS: BP 98/62
[2019-04-26] MEDS: IPRATROPIUM BROMIDE 0.5 MG/2.5 ML NEB SOLUTION NEB SCH ×4 (02:48→19:33)
[2019-04-26] MEDS: ALBUTEROL SULFATE 2.5 MG/0.5 ML NEB SOLUTION NEB SCH ×4 (02:48→19:33)
[2019-04-26 04:08] VITALS: BP 100/53
[2019-04-26] MEDS: CeFAZolin 2 GM/DEXTROSE 50 ML IV SCH (06:01)
[2019-04-26 06:39] LABS: BASOPHILS % (AUTO) 0.1 % (0.0-2.0); EOSINOPHILS % (AUTO) 0 % (1.0-6.0); HEMATOCRIT 35.9 % (36-46); HEMOGLOBIN 11.5 g/dL (12.0-16.0); LYMPHOCYTES # (AUTO) 2.7 K/uL (1.0-4.8); LYMPHOCYTES % (AUTO) 12.1 % (22.0-44.0); MEAN CORPUSCULAR HEMOGLOBIN 26.8 pg (26.0-34.0); MEAN CORPUSCULAR VOLUME 84 fL (80-100); MONOCYTES # (AUTO) 1.2 K/uL (0.1-1.0); MONOCYTES % (AUTO) 5.5 % (2.0-9.0); NEUTROPHILS # (AUTO) 18.2 K/uL (1.8-7.7); NEUTROPHILS % (AUTO) 82.3 % (40.0-70.0); PLATELET COUNT (AUTO) 437 K/uL (150-450); RED BLOOD CELL COUNT(AUTO) 4.29 MIL/uL (4.00-5.20); RED CELL DISTRIBUTION WIDTH 16.2 % (11.5-14.5)
[2019-04-26 07:45] VITALS: BP 107/55
[2019-04-26] MEDS: DOCUSATE SODIUM 100 MG CAPSULE PO SCH ×2 (09:00→21:20)
[2019-04-26] MEDS: PANTOPRAZOLE SODIUM 40 MG DR TABLET PO SCH (09:00)
[2019-04-26] MEDS: MULTIVITAMINS, THERAPEUTIC 15 ML UDCUP PEG SCH (10:22)
[2019-04-26] MEDS: HEPARIN SODIUM,PORCINE 5,000 UNITS/ML VIAL SQ SCH ×2 (10:23→21:20)
[2019-04-26 11:57] VITALS: BP 102/52
[2019-04-26] MEDS ORDERED: PredniSONE 10 MG TABLET PEG SCH (15:30)
[2019-04-26 20:56] VITALS: BP 100/49
[2019-04-27] VITALS (7 sets, daily range): BP systolic 108–133; BP diastolic 47–77
[2019-04-27] MEDS: MetroNIDAZOLE 500 MG TABLET PO SCH ×2 (00:07→09:30)
[2019-04-27] MEDS: IPRATROPIUM BROMIDE 0.5 MG/2.5 ML NEB SOLUTION NEB SCH ×4 (03:15→20:04)
[2019-04-27] MEDS: ALBUTEROL SULFATE 2.5 MG/0.5 ML NEB SOLUTION NEB SCH ×4 (03:15→20:04)
[2019-04-27] MEDS: ACETAMINOPHEN 325 MG TABLET PO PRN (05:06)
[2019-04-27 08:58] LABS: HEMATOCRIT 36.9 % (36-46); HEMOGLOBIN 11.8 g/dL (12.0-16.0); MEAN CORPUSCULAR HEMOGLOBIN 26.9 pg (26.0-34.0); MEAN CORPUSCULAR HGB CONC 31.9 G/dL (31.0-37.0); MEAN CORPUSCULAR VOLUME 84 fL (80-100); PLATELET COUNT (AUTO) 500 K/uL (150-450); RED BLOOD CELL COUNT(AUTO) 4.37 MIL/uL (4.00-5.20); RED CELL DISTRIBUTION WIDTH 16.1 % (11.5-14.5)
[2019-04-27] MEDS: DOCUSATE SODIUM 100 MG CAPSULE PO SCH ×2 (09:00→20:58)
[2019-04-27 09:07] LABS: BAND NEUTROPHILS % (MANUAL) 0 % (0-5)
[2019-04-27] MEDS: PredniSONE 20 MG TABLET PEG SCH (09:30)
[2019-04-27] MEDS: PANTOPRAZOLE SODIUM 40 MG DR TABLET PO SCH (09:30)
[2019-04-27 09:31] LABS: LYMPHOCYTES % (MANUAL) 29 % (22-44); MONOCYTES % (MANUAL) 6 % (2-9); PROMYELOCYTES % 1 (0-0); SEGMENTED NEUTROPHILS % 64 % (40-70)
[2019-04-27] MEDS: MULTIVITAMINS, THERAPEUTIC 15 ML UDCUP PEG SCH (09:31)
[2019-04-27] MEDS: HEPARIN SODIUM,PORCINE 5,000 UNITS/ML VIAL SQ SCH ×2 (09:31→20:57)
[2019-04-27] MEDS: VANCOMYCIN HCL 250 MG/5 ML SOLUTION ORAL.SYG GT SCH ×2 (10:43→18:34)
[2019-04-28] MEDS: VANCOMYCIN HCL 250 MG/5 ML SOLUTION ORAL.SYG GT SCH ×3 (00:13→12:53)
[2019-04-28] MEDS: ALBUTEROL SULFATE 2.5 MG/0.5 ML NEB SOLUTION NEB SCH ×3 (02:23→14:00)
[2019-04-28] MEDS: IPRATROPIUM BROMIDE 0.5 MG/2.5 ML NEB SOLUTION NEB SCH ×3 (02:23→14:00)
[2019-04-28 05:17] VITALS: BP 115/65
[2019-04-28 07:08] VITALS: BP 142/72
[2019-04-28 08:00] LABS: BASOPHILS % (AUTO) 0.1 % (0.0-2.0); EOSINOPHILS % (AUTO) 0.9 % (1.0-6.0); HEMOGLOBIN 11.6 g/dL (12.0-16.0); LYMPHOCYTES # (AUTO) 6.5 K/uL (1.0-4.8); LYMPHOCYTES % (AUTO) 29.5 % (22.0-44.0); MEAN CORPUSCULAR HGB CONC 32.1 G/dL (31.0-37.0); MEAN CORPUSCULAR VOLUME 84 fL (80-100); MONOCYTES # (AUTO) 1.2 K/uL (0.1-1.0); MONOCYTES % (AUTO) 5.6 % (2.0-9.0); NEUTROPHILS # (AUTO) 14.1 K/uL (1.8-7.7); NEUTROPHILS % (AUTO) 63.9 % (40.0-70.0); PLATELET COUNT (AUTO) 430 K/uL (150-450); RED BLOOD CELL COUNT(AUTO) 4.28 MIL/uL (4.00-5.20)
[2019-04-28] MEDS: MULTIVITAMINS, THERAPEUTIC 15 ML UDCUP PEG SCH (08:14)
[2019-04-28] MEDS: PredniSONE 20 MG TABLET PEG SCH (08:14)
[2019-04-28] MEDS: PANTOPRAZOLE SODIUM 40 MG DR TABLET PO SCH (08:14)
[2019-04-28] MEDS: HEPARIN SODIUM,PORCINE 5,000 UNITS/ML VIAL SQ SCH (08:15)
[2019-04-28] MEDS: DOCUSATE SODIUM 100 MG CAPSULE PO SCH (08:16)
[2019-04-28] MEDS: LORazepam 2 MG/ML VIAL IVP PRN (09:19)
[2019-04-28 11:41] VITALS: BP 117/63
[2019-04-28 11:58] LABS: GLUCOMETER DEV NAME(LOC) 5S.2A; GLUCOSE,POINT OF CARE 196 MG/DL (70-110)
[2019-04-28 15:26] VITALS: BP 102/58
[2019-04-28] MEDS ORDERED: ALBU8HFA IH ×2 (15:48→15:49)
[2019-04-28] MEDS ORDERED: MULT-1203 PEG (15:52)
[2019-04-28] MEDS ORDERED: PANT40TA25 PO (15:53)
[2019-04-28] MEDS ORDERED: PRED20 PO (15:55)
[2019-04-28] MEDS ORDERED: PRED5 PO (15:56)
[2019-04-28] MEDS ORDERED: PRED10 PO (15:56)
[2019-04-28] MEDS ORDERED: PRED1 PO (15:56)
[2019-04-28] MEDS ORDERED: VANC250C13 GT (15:59)
[2019-04-28] MEDS ORDERED: ACET-2247 PO (16:00)
[2019-04-28 18:05] LABS: GLUCOMETER DEV NAME(LOC) 5N.2; GLUCOSE,POINT OF CARE 129 MG/DL (70-110)
[2019-04-28 18:05] LABS: GLUCOMETER DEV NAME(LOC) 5N.2; GLUCOSE,POINT OF CARE 117 MG/DL (70-110)
== END 2019-04-28 19:10 | DRG 720 ==
LOC: EMS 04:54 → ICU 08:12 → 5S 04-25 18:50
PROVIDERS: ADMIT Hospitalist; ATTEND Hospitalist
PROC: 5A1955Z Respiratory Ventilation, Greater than 96 Consecutive Hours (ICD-10-PCS; principal; 2019-04-18)
PROC: 0BH17EZ Insertion of Endotracheal Airway into Trachea, Via Natural or Artificial Opening (ICD-10-PCS; 2019-04-18)
DX: A41.9 Sepsis, unspecified organism (principal); J96.01 Acute respiratory failure with hypoxia; J69.0 Pneumonitis due to inhalation of food and vomit; I95.9 Hypotension, unspecified; F84.2 Rett's syndrome; E55.9 Vitamin D deficiency, unspecified; J45.909 Unspecified asthma, uncomplicated; R21 Rash and other nonspecific skin eruption; E87.6 Hypokalemia; F20.9 Schizophrenia, unspecified; A04.72 Enterocolitis due to Clostridium difficile, not specified as recurrent; Z98.1 Arthrodesis status; Z79.899 Other long term (current) drug therapy; Z88.0 Allergy status to penicillin; Z88.8 Allergy status to other drugs, medicaments and biological substances
CPT/HCPCS: 31500; 36600; 82805; 83605; 84132; 84145; 87040; 87070; 87081; 87205; 87324; 87449; 87804; 87899; 93005; 94002; 94003; 94640; 99291; G0378; J0330; J0690; J0696; J1644; J2060; J2270; J2405; J2543; J2704; J2920; J2930; J3370; J3480; J3490; J7030; J7040; J7050; J7060

== ENCOUNTER 2019-07-28 02:18 | Inpatient (IN) | payer MEDICAID ==
[~2019-07-28] VITALS: Ht 152.4 cm; Wt 47.4 kg
[~2019-07-28 02:18] MED LIST changes: +ACET-2247 PO; +ALBU8HFA IH; -CARV6 GT; -IPRA3AMP24 IH; -METR500 GT; +MULT-1203 PEG; +PANT40TA25 PO; +PRED1 PO; +PRED10 PO; +PRED20 PO; +PRED5 PO; +VANC250C13 GT
[2019-07-28] MEDS ORDERED: AZITHROMYCIN 500 MG/NS 250 ML IV ONE (03:00)
[2019-07-28] MEDS ORDERED: *CLINICAL-CEFEPIME DOSING CLINICAL ONE ×2 (03:00→08:15)
[2019-07-28] MEDS ORDERED: SODIUM CHLORIDE 0.9% 1,400 ML IV ONE (03:01)
[2019-07-28] MEDS ORDERED: SULFAMETHOX/TRIMETH 20 ML in DEXTROSE 5%-WATER 250 ML IV ONE (03:15)
[2019-07-28] MEDS ORDERED: 0.9% SODIUM CHLORIDE 10 ML SYRINGE IVP PRN ×2 (03:15→07:00)
[2019-07-28] MEDS ORDERED: CEFEPIME HCL 1 GM in DEXTROSE 5%-WATER 50 ML IV ONE (03:30)
[2019-07-28 04:10] LABS: BASOPHILS % (AUTO) 0.3 % (0.0-2.0); EOSINOPHILS % (AUTO) 0.4 % (1.0-6.0); HEMATOCRIT 41.1 % (36-46); LYMPHOCYTES # (AUTO) 1.3 K/uL (1.0-4.8); LYMPHOCYTES % (AUTO) 5.4 % (22.0-44.0); MEAN CORPUSCULAR HEMOGLOBIN 27.4 pg (26.0-34.0); MEAN CORPUSCULAR HGB CONC 31.7 G/dL (31.0-37.0); MEAN CORPUSCULAR VOLUME 86 fL (80-100); MONOCYTES # (AUTO) 0.9 K/uL (0.1-1.0); MONOCYTES % (AUTO) 3.8 % (2.0-9.0); NEUTROPHILS # (AUTO) 22.1 K/uL (1.8-7.7); NEUTROPHILS % (AUTO) 90.1 % (40.0-70.0); PLATELET COUNT (AUTO) 321 K/uL (150-450); RED BLOOD CELL COUNT(AUTO) 4.76 MIL/uL (4.00-5.20); RED CELL DISTRIBUTION WIDTH 16.7 % (11.5-14.5)
[2019-07-28 04:11] LABS: APPEARANCE,URINE CLOUDY (CLEAR); BILIRUBIN,URINE NEGATIVE (NEGATIVE); GLUCOSE, URINE (UA) NEGATIVE (NEGATIVE); KETONES,URINE 40 mg/dL (NEGATIVE); LEUKOCYTE ESTERASE ,URINE SMALL (NEGATIVE); NITRATE,URINE NEGATIVE (NEGATIVE); OCCULT BLOOD,URINE NEGATIVE (NEGATIVE); PH,URINE 6.5 (5.0-8.0); PROTEIN,URINE NEGATIVE (NEGATIVE); UROBILINOGEN,URINE 0.2 mg/dL (<=1.0)
[2019-07-28 04:16] LABS: BACTERIA,URINE Moderate /HPF (None Seen); SQUAMOUS EPITHELIAL CELL,UR Moderate /LPF (None Seen)
[2019-07-28 04:21] LABS: PROTHROMBIN TIME 10.2 SEC (9.4-11.6)
[2019-07-28 04:25] LABS: ANION GAP 7 mmol/L (8-16); CARBON DIOXIDE 32 mmol/L (22-29); CHLORIDE 103 mmol/L (98-107); CREATININE 0.42 mg/dL (0.60-1.30); GLOMERULAR FILTR. RATE CALC > 60 mL/min (>60); GLUCOSE,RANDOM 157 mg/dL (70-110); POTASSIUM 3.1 mmol/L (3.5-5.1); SODIUM SERUM 142 mmol/L (136-145); UREA NITROGEN, BLOOD 12 mg/dL (7-18)
[2019-07-28] MEDS ORDERED: MethylPREDNISolone SOD SUCC 125 MG/2 ML VIAL IVP ONE (04:30)
[2019-07-28 04:33] LABS: LACTIC ACID 1.8 mmol/L (0.4-2.0)
[2019-07-28 04:43] LABS: ALANINE AMINOTRANSFERASE 36 U/L (12-78); ALBUMIN 2.7 g/dL (3.4-5.0); ALKALINE PHOSPHATASE 172 U/L (46-116); ASPARTATE AMINOTRANSFERASE 24 U/L (15-37); BILIRUBIN,TOTAL 0.4 mg/dL (0.1-1.0); TOTAL PROTEIN, SERUM 6.3 g/dL (6.4-8.2)
[2019-07-28] MEDS ORDERED: RAPID SEQUENCE KIT [RSI] 1 EACH KIT ONE (04:52)
[2019-07-28] MEDS ORDERED: ROCURONIUM BROMIDE 10 MG/ML 5 ML VIAL ONE (04:53)
[2019-07-28] MEDS ORDERED: ACETAMINOPHEN 325 MG TABLET PO PRN ×2 (07:00→08:15)
[2019-07-28] MEDS ORDERED: ONDANSETRON HCL 4 MG/2 ML VIAL IVP PRN (07:00)
[2019-07-28] MEDS: PROPOFOL 1000 MG/ISO-OSM 100 ML IV PRN ×2 (07:09→13:23)
[2019-07-28] MEDS ORDERED: FentaNYL CITRATE PF 500 MCG in DEXTROSE 5%-WATER 90 ML IV PRN (07:30)
[2019-07-28] MEDS ORDERED: POTASSIUM CHLORIDE 20 MEQ ER TABLET PO PRN (08:15)
[2019-07-28] MEDS ORDERED: SODIUM CHLORIDE 0.9% 1,000 ML IV ONE (08:15)
[2019-07-28] MEDS ORDERED: *CLINICAL-BACTRIM/SEPTRA IVPB DOSING CLINICAL ONE (08:15)
[2019-07-28] MEDS ORDERED: LEVALBUTEROL HCL 0.63 MG/3 ML NEB SOLUTION NEB ONE (08:15)
[2019-07-28] MEDS ORDERED: IPRATROPIUM BROMIDE 0.5 MG/2.5 ML NEB SOLUTION NEB ONE (08:15)
[2019-07-28 08:30] VITALS: BP 93/61
[2019-07-28 09:00] VITALS: BP 100/66
[2019-07-28 09:03] LABS: ABG A-A DIFF O2 288.5 mmHg (10-20.0); ABG BASE EXCESS 2.2 mmol/L (-2.0-3.0); ABG CARBOXYHEMOGLOBIN 0.5 % (0.0-1.5); ABG HCO3 26.1 mmol/L (22.0-26.0); ABG METHEMOGLOBIN 0.3 % (0.0-1.5); ABG OXYGEN CONTENT 17.7 mL/dL (15.0-23.0); ABG OXYGEN SATURATION 96.7 % (95.0-98.0); ABG OXYHEMOGLOBIN 95.9 % (94.0-100.0); ABG PCO2 44 mmHg (35-45); ABG PH 7.403 (7.350-7.450); ABG TOTAL HEMOGLOBIN 13.1 G/dL (12.0-18.0); PO2, ARTERIAL BG 89.5 mmHg (92.0-100.0); SITE, BLOOD GAS RT RADIAL; SOURCE, BLOOD GAS ARTERIAL; TEMPERATURE, FAHRENHEIT, BG 99.8 FAHREN (96.0-98.6)
[2019-07-28 09:04] LABS: O2 DEVICE,BLOOD GAS VENTILATOR (ROOM AIR); PEEP,BG 5 cm H2O; SPONTANEOUS VT, BG 391 ml; VT, ABG 450 ml
[2019-07-28 10:00] VITALS: BP 98/64
[2019-07-28] MEDS: FAMOTIDINE 20 MG TABLET PO SCH (10:11)
[2019-07-28] MEDS: DOCUSATE SODIUM 100 MG CAPSULE PO SCH ×2 (10:11→22:43)
[2019-07-28] MEDS: POTASSIUM CHL 10 MEQ/WATER 50 ML IV PRN ×3 (10:13→13:18)
[2019-07-28] MEDS ORDERED: SODIUM CHLORIDE 0.9% 250 ML IV ONE (10:36)
[2019-07-28 12:00] VITALS: BP 91/65
[2019-07-28] MEDS: SULFAMETHOX/TRIMETH 10 ML in DEXTROSE 5%-WATER 250 ML IV SCH ×2 (13:22→23:21)
[2019-07-28] MEDS: CEFEPIME HCL 1 GM in DEXTROSE 5%-WATER 50 ML IV SCH (15:13)
[2019-07-28] MEDS: HEPARIN SODIUM,PORCINE 5,000 UNITS/ML VIAL SQ SCH (15:15)
[2019-07-28 16:00] VITALS: BP 97/59
[2019-07-28] MEDS ORDERED: ETOMIDATE 2 MG/ML 10 ML VIAL IV ONE (16:58)
[2019-07-28] MEDS: IPRATROPIUM BROMIDE 0.5 MG/2.5 ML NEB SOLUTION NEB SCH (21:47)
[2019-07-28] MEDS: ALBUTEROL SULFATE 2.5 MG/0.5 ML NEB SOLUTION NEB SCH (21:47)
[2019-07-28] MEDS: BUDESONIDE 0.5 MG/2 ML NEB SOLUTION NEB SCH (21:59)
[2019-07-28] MEDS: FentaNYL CITRATE PF 500 MCG in DEXTROSE 5%-WATER 90 ML IV PRN (22:39)
[2019-07-29] MEDS: HEPARIN SODIUM,PORCINE 5,000 UNITS/ML VIAL SQ SCH ×3 (01:50→15:21)
[2019-07-29] MEDS: PROPOFOL 1000 MG/ISO-OSM 100 ML IV PRN ×3 (01:52→18:37)
[2019-07-29] MEDS: ALBUTEROL SULFATE 2.5 MG/0.5 ML NEB SOLUTION NEB SCH ×4 (02:31→19:51)
[2019-07-29] MEDS: IPRATROPIUM BROMIDE 0.5 MG/2.5 ML NEB SOLUTION NEB SCH ×4 (02:31→19:51)
[2019-07-29] MEDS: CEFEPIME HCL 1 GM in DEXTROSE 5%-WATER 50 ML IV SCH ×2 (03:46→15:21)
[2019-07-29] MEDS: SULFAMETHOX/TRIMETH 10 ML in DEXTROSE 5%-WATER 250 ML IV SCH ×2 (06:00→13:08)
[2019-07-29 06:26] LABS: PHOSPHORUS 3.1 mg/dL (2.5-4.9)
[2019-07-29 08:00] VITALS: BP 120/58
[2019-07-29] MEDS: BUDESONIDE 0.5 MG/2 ML NEB SOLUTION NEB SCH ×2 (08:06→19:51)
[2019-07-29] MEDS: FAMOTIDINE 20 MG TABLET PO SCH (08:08)
[2019-07-29] MEDS: DOCUSATE SODIUM 100 MG CAPSULE PO SCH ×2 (08:08→21:50)
[2019-07-29] MEDS: THIAMINE HCL 100 MG/ML 2ML VIAL IVP SCH (08:08)
[2019-07-29 08:12] LABS: ANION GAP 11 mmol/L (8-16); CALCIUM, TOTAL 8.8 mg/dL (8.8-10.5); CARBON DIOXIDE 21 mmol/L (22-29); CHLORIDE 107 mmol/L (98-107); CREATININE 0.43 mg/dL (0.60-1.30); GLOMERULAR FILTR. RATE CALC > 60 mL/min (>60); GLUCOSE,RANDOM 85 mg/dL (70-110); POTASSIUM 3.7 mmol/L (3.5-5.1); SODIUM SERUM 139 mmol/L (136-145); UREA NITROGEN, BLOOD 10 mg/dL (7-18)
[2019-07-29] MEDS: FentaNYL CITRATE PF 500 MCG in DEXTROSE 5%-WATER 90 ML IV PRN ×3 (09:31→21:51)
[2019-07-29 12:00] VITALS: BP 129/76
[2019-07-29 12:51] LABS: BASOPHILS % (AUTO) 0.4 % (0.0-2.0); EOSINOPHILS % (AUTO) 0.5 % (1.0-6.0); HEMATOCRIT 38.2 % (36-46); HEMOGLOBIN 11.8 g/dL (12.0-16.0); LYMPHOCYTES # (AUTO) 2.3 K/uL (1.0-4.8); LYMPHOCYTES % (AUTO) 10.7 % (22.0-44.0); MEAN CORPUSCULAR HGB CONC 30.8 G/dL (31.0-37.0); MEAN CORPUSCULAR VOLUME 87 fL (80-100); MONOCYTES # (AUTO) 1.4 K/uL (0.1-1.0); MONOCYTES % (AUTO) 6.5 % (2.0-9.0); NEUTROPHILS # (AUTO) 17.8 K/uL (1.8-7.7); NEUTROPHILS % (AUTO) 81.9 % (40.0-70.0); PLATELET COUNT (AUTO) 297 K/uL (150-450); RED BLOOD CELL COUNT(AUTO) 4.37 MIL/uL (4.00-5.20); RED CELL DISTRIBUTION WIDTH 17.2 % (11.5-14.5)
[2019-07-29] MEDS ORDERED: SODIUM CHLORIDE 0.9% 250 ML IV ONE (13:17)
[2019-07-29 16:00] VITALS: BP 110/74
[2019-07-29] MEDS: MetroNIDAZOLE 500 MG/NACL 100 ML IV SCH (17:22)
[2019-07-30] MEDS: HEPARIN SODIUM,PORCINE 5,000 UNITS/ML VIAL SQ SCH ×3 (01:21→16:59)
[2019-07-30] MEDS: MetroNIDAZOLE 500 MG/NACL 100 ML IV SCH ×3 (01:22→16:59)
[2019-07-30] MEDS: FentaNYL CITRATE PF 500 MCG in DEXTROSE 5%-WATER 90 ML IV PRN ×4 (01:23→19:02)
[2019-07-30] MEDS: IPRATROPIUM BROMIDE 0.5 MG/2.5 ML NEB SOLUTION NEB SCH ×3 (01:45→20:13)
[2019-07-30] MEDS: ALBUTEROL SULFATE 2.5 MG/0.5 ML NEB SOLUTION NEB SCH ×3 (01:45→20:12)
[2019-07-30] MEDS: CEFEPIME HCL 1 GM in DEXTROSE 5%-WATER 50 ML IV SCH ×2 (04:55→14:12)
[2019-07-30] MEDS: PROPOFOL 1000 MG/ISO-OSM 100 ML IV PRN ×4 (04:56→20:30)
[2019-07-30 08:00] VITALS: BP 129/78
[2019-07-30] MEDS: THIAMINE HCL 100 MG/ML 2ML VIAL IVP SCH (08:45)
[2019-07-30] MEDS: DOCUSATE SODIUM 100 MG CAPSULE PO SCH ×2 (08:45→20:37)
[2019-07-30] MEDS: FAMOTIDINE 20 MG TABLET PO SCH (08:46)
[2019-07-30 12:00] VITALS: BP 97/54
[2019-07-30 16:00] VITALS: BP 118/70
[2019-07-30 20:00] VITALS: BP 125/82
[2019-07-30] MEDS: BUDESONIDE 0.5 MG/2 ML NEB SOLUTION NEB SCH (20:13)
[2019-07-31] VITALS: BP 92/50
[2019-07-31] MEDS: HEPARIN SODIUM,PORCINE 5,000 UNITS/ML VIAL SQ SCH ×3 (00:10→16:02)
[2019-07-31] MEDS: MetroNIDAZOLE 500 MG/NACL 100 ML IV SCH ×3 (00:11→16:02)
[2019-07-31] MEDS: ALBUTEROL SULFATE 2.5 MG/0.5 ML NEB SOLUTION NEB SCH ×4 (02:29→20:41)
[2019-07-31] MEDS: IPRATROPIUM BROMIDE 0.5 MG/2.5 ML NEB SOLUTION NEB SCH ×4 (02:29→20:41)
[2019-07-31] MEDS: CEFEPIME HCL 1 GM in DEXTROSE 5%-WATER 50 ML IV SCH ×2 (03:10→14:18)
[2019-07-31 04:00] VITALS: BP 129/83
[2019-07-31] MEDS ORDERED: SODIUM CHLORIDE 0.9% 250 ML IV ONE (05:09)
[2019-07-31] MEDS: FentaNYL CITRATE PF 500 MCG in DEXTROSE 5%-WATER 90 ML IV PRN ×3 (05:28→22:48)
[2019-07-31 06:54] LABS: ALANINE AMINOTRANSFERASE 34 U/L (12-78); ALBUMIN 2.2 g/dL (3.4-5.0); ALKALINE PHOSPHATASE 129 U/L (46-116); ANION GAP 10 mmol/L (8-16); ASPARTATE AMINOTRANSFERASE 30 U/L (15-37); BILIRUBIN,TOTAL 0.3 mg/dL (0.1-1.0); CALCIUM, TOTAL 8.7 mg/dL (8.8-10.5); CARBON DIOXIDE 23 mmol/L (22-29); CHLORIDE 106 mmol/L (98-107); CREATININE 0.25 mg/dL (0.60-1.30); GLOMERULAR FILTR. RATE CALC > 60 mL/min (>60); GLUCOSE,RANDOM 104 mg/dL (70-110); POTASSIUM 3.2 mmol/L (3.5-5.1); SODIUM SERUM 139 mmol/L (136-145); TOTAL PROTEIN, SERUM 5.6 g/dL (6.4-8.2); UREA NITROGEN, BLOOD 5 mg/dL (7-18)
[2019-07-31] MEDS: POTASSIUM CHL 10 MEQ/WATER 50 ML IV PRN ×3 (07:28→09:19)
[2019-07-31] MEDS: PROPOFOL 1000 MG/ISO-OSM 100 ML IV PRN ×3 (07:29→20:15)
[2019-07-31] MEDS: BUDESONIDE 0.5 MG/2 ML NEB SOLUTION NEB SCH ×2 (07:45→20:41)
[2019-07-31 08:00] VITALS: BP 112/66
[2019-07-31] MEDS: FAMOTIDINE 20 MG TABLET PO SCH (08:01)
[2019-07-31] MEDS: DOCUSATE SODIUM 100 MG CAPSULE PO SCH ×2 (08:02→21:35)
[2019-07-31] MEDS: THIAMINE HCL 100 MG/ML 2ML VIAL IVP SCH (08:02)
[2019-07-31 12:00] VITALS: BP 136/81
[2019-07-31 16:00] VITALS: BP 113/69
[2019-07-31 20:00] VITALS: BP 109/74
[2019-08-01] VITALS: BP 114/76
[2019-08-01] MEDS ORDERED: SODIUM CHLORIDE 0.9% 250 ML IV ONE (00:22)
[2019-08-01] MEDS: HEPARIN SODIUM,PORCINE 5,000 UNITS/ML VIAL SQ SCH ×3 (00:31→15:49)
[2019-08-01] MEDS: MetroNIDAZOLE 500 MG/NACL 100 ML IV SCH ×3 (00:32→18:10)
[2019-08-01] MEDS: IPRATROPIUM BROMIDE 0.5 MG/2.5 ML NEB SOLUTION NEB SCH ×4 (01:24→20:29)
[2019-08-01] MEDS: ALBUTEROL SULFATE 2.5 MG/0.5 ML NEB SOLUTION NEB SCH ×4 (01:25→20:29)
[2019-08-01] MEDS: CefTRIAXone 1 GM/DEXTROSE 50 ML IV SCH (01:47)
[2019-08-01 04:00] VITALS: BP 92/53
[2019-08-01] MEDS: PROPOFOL 1000 MG/ISO-OSM 100 ML IV PRN (05:18)
[2019-08-01 05:47] LABS: BASOPHILS % (AUTO) 0.7 % (0.0-2.0); EOSINOPHILS % (AUTO) 3.7 % (1.0-6.0); LYMPHOCYTES # (AUTO) 3.2 K/uL (1.0-4.8); LYMPHOCYTES % (AUTO) 33.9 % (22.0-44.0); MEAN CORPUSCULAR HEMOGLOBIN 27.8 pg (26.0-34.0); MEAN CORPUSCULAR HGB CONC 32.5 G/dL (31.0-37.0); MEAN CORPUSCULAR VOLUME 86 fL (80-100); MONOCYTES # (AUTO) 0.6 K/uL (0.1-1.0); MONOCYTES % (AUTO) 5.9 % (2.0-9.0); NEUTROPHILS # (AUTO) 5.3 K/uL (1.8-7.7); NEUTROPHILS % (AUTO) 55.8 % (40.0-70.0); PLATELET COUNT (AUTO) 332 K/uL (150-450); RED BLOOD CELL COUNT(AUTO) 4.33 MIL/uL (4.00-5.20)
[2019-08-01] MEDS: FentaNYL CITRATE PF 500 MCG in DEXTROSE 5%-WATER 90 ML IV PRN ×4 (06:10→22:31)
[2019-08-01 07:22] LABS: ALANINE AMINOTRANSFERASE 40 U/L (12-78); ALBUMIN 2.2 g/dL (3.4-5.0); ALKALINE PHOSPHATASE 129 U/L (46-116); ANION GAP 14 mmol/L (8-16); ASPARTATE AMINOTRANSFERASE 50 U/L (15-37); BILIRUBIN,TOTAL 0.2 mg/dL (0.1-1.0); CARBON DIOXIDE 20 mmol/L (22-29); CHLORIDE 103 mmol/L (98-107); CREATININE 0.24 mg/dL (0.60-1.30); GLOMERULAR FILTR. RATE CALC > 60 mL/min (>60); GLUCOSE,RANDOM 99 mg/dL (70-110); POTASSIUM 3.7 mmol/L (3.5-5.1); SODIUM SERUM 137 mmol/L (136-145); TOTAL PROTEIN, SERUM 5.8 g/dL (6.4-8.2); UREA NITROGEN, BLOOD 7 mg/dL (7-18)
[2019-08-01] MEDS: BUDESONIDE 0.5 MG/2 ML NEB SOLUTION NEB SCH ×2 (07:57→20:29)
[2019-08-01 08:00] VITALS: BP 91/53
[2019-08-01] MEDS: METOCLOPRAMIDE HCL 5 MG/ML 2 ML VIAL IVP SCH ×2 (09:26→15:49)
[2019-08-01] MEDS: THIAMINE HCL 100 MG/ML 2ML VIAL IVP SCH (09:26)
[2019-08-01] MEDS: FAMOTIDINE 20 MG TABLET PO SCH (09:26)
[2019-08-01] MEDS: DOCUSATE SODIUM 100 MG CAPSULE PO SCH ×2 (09:26→20:56)
[2019-08-01 12:00] VITALS: BP 106/71
[2019-08-01 16:00] VITALS: BP 110/65
[2019-08-01 20:00] VITALS: BP 107/54
[2019-08-01] MEDS ORDERED: SODIUM CHLORIDE 0.9% 100 ML ONE (23:58)
[2019-08-02] VITALS (7 sets, daily range): BP systolic 96–124; BP diastolic 53–75
[2019-08-02] MEDS: METOCLOPRAMIDE HCL 5 MG/ML 2 ML VIAL IVP SCH ×4 (00:01→23:27)
[2019-08-02] MEDS: HEPARIN SODIUM,PORCINE 5,000 UNITS/ML VIAL SQ SCH ×4 (00:02→23:26)
[2019-08-02] MEDS: MetroNIDAZOLE 500 MG/NACL 100 ML IV SCH ×3 (00:58→16:42)
[2019-08-02] MEDS: CefTRIAXone 1 GM/DEXTROSE 50 ML IV SCH (01:55)
[2019-08-02] MEDS: ALBUTEROL SULFATE 2.5 MG/0.5 ML NEB SOLUTION NEB SCH ×4 (02:23→19:20)
[2019-08-02] MEDS: IPRATROPIUM BROMIDE 0.5 MG/2.5 ML NEB SOLUTION NEB SCH ×4 (02:23→19:20)
[2019-08-02] MEDS: FentaNYL CITRATE PF 500 MCG in DEXTROSE 5%-WATER 90 ML IV PRN ×6 (04:07→23:43)
[2019-08-02 05:17] LABS: BASOPHILS % (AUTO) 1.3 % (0.0-2.0); EOSINOPHILS % (AUTO) 4.9 % (1.0-6.0); HEMATOCRIT 38.2 % (36-46); HEMOGLOBIN 12.5 g/dL (12.0-16.0); LYMPHOCYTES % (AUTO) 29.1 % (22.0-44.0); MEAN CORPUSCULAR HEMOGLOBIN 27.9 pg (26.0-34.0); MEAN CORPUSCULAR HGB CONC 32.8 G/dL (31.0-37.0); MEAN CORPUSCULAR VOLUME 85 fL (80-100); MONOCYTES # (AUTO) 0.8 K/uL (0.1-1.0); MONOCYTES % (AUTO) 7.3 % (2.0-9.0); NEUTROPHILS % (AUTO) 57.4 % (40.0-70.0); PLATELET COUNT (AUTO) 353 K/uL (150-450); RED CELL DISTRIBUTION WIDTH 16.2 % (11.5-14.5)
[2019-08-02 05:33] LABS: ANION GAP 8 mmol/L (8-16); CALCIUM, TOTAL 8.4 mg/dL (8.8-10.5); CARBON DIOXIDE 26 mmol/L (22-29); CHLORIDE 103 mmol/L (98-107); CREATININE 0.28 mg/dL (0.60-1.30); GLOMERULAR FILTR. RATE CALC > 60 mL/min (>60); GLUCOSE,RANDOM 107 mg/dL (70-110); POTASSIUM 3.8 mmol/L (3.5-5.1); SODIUM SERUM 137 mmol/L (136-145); UREA NITROGEN, BLOOD 9 mg/dL (7-18)
[2019-08-02] MEDS: BUDESONIDE 0.5 MG/2 ML NEB SOLUTION NEB SCH ×2 (08:24→22:28)
[2019-08-02] MEDS ORDERED: MAGNESIUM SULFATE 4 GM/WATER 100 ML IV PRN (08:45)
[2019-08-02] MEDS ORDERED: MAGNESIUM OXIDE 400 MG TABLET PO PRN (08:45)
[2019-08-02] MEDS: DOCUSATE SODIUM 100 MG CAPSULE PO SCH ×2 (09:09→20:08)
[2019-08-02] MEDS: THIAMINE HCL 100 MG/ML 2ML VIAL IVP SCH (09:09)
[2019-08-02] MEDS: FAMOTIDINE 20 MG TABLET PO SCH (09:09)
[2019-08-02 09:20] LABS: ALBUMIN 2.4 g/dL (3.4-5.0)
[2019-08-02] MEDS ORDERED: SODIUM CHLORIDE 0.9% 250 ML IV ONE (10:15)
[2019-08-02] MEDS ORDERED: SODIUM CHLORIDE 0.9% 500 ML IV ONE (10:15)
[2019-08-02] MEDS: PROPOFOL 1000 MG/ISO-OSM 100 ML IV PRN ×3 (10:17→21:08)
[2019-08-02] MEDS: MAGNESIUM SULFATE 2 GM/WATER 50 ML IV PRN (11:35)
[2019-08-02] MEDS ORDERED: MAGNESIUM HYDROXIDE SUSPENSION 30 ML UDCUP PO PRN (16:15)
[2019-08-02] MEDS ORDERED: BISACODYL 10 MG RECTAL RECTAL SUPPOSITORY PR PRN (16:15)
[2019-08-03] VITALS (8 sets, daily range): BP systolic 86–105; BP diastolic 53–59
[2019-08-03] MEDS ORDERED: INFLUENZA VIRUS VACCINE QVS 2019-20 (3YR+)/PF 60 MCG/0.5 ML SYRINGE IM ONE (00:15)
[2019-08-03] MEDS: MetroNIDAZOLE 500 MG/NACL 100 ML IV SCH ×3 (01:41→16:57)
[2019-08-03] MEDS: CefTRIAXone 1 GM/DEXTROSE 50 ML IV SCH (01:42)
[2019-08-03] MEDS ORDERED: SODIUM CHLORIDE 0.9% 250 ML IV ONE ×2 (02:16→08:46)
[2019-08-03] MEDS: PROPOFOL 1000 MG/ISO-OSM 100 ML IV PRN ×4 (02:40→23:42)
[2019-08-03] MEDS: FentaNYL CITRATE PF 500 MCG in DEXTROSE 5%-WATER 90 ML IV PRN ×5 (02:41→20:42)
[2019-08-03] MEDS: ALBUTEROL SULFATE 2.5 MG/0.5 ML NEB SOLUTION NEB SCH ×4 (04:08→20:09)
[2019-08-03] MEDS: IPRATROPIUM BROMIDE 0.5 MG/2.5 ML NEB SOLUTION NEB SCH ×4 (04:08→20:09)
[2019-08-03 05:30] LABS: BASOPHILS % (AUTO) 0.4 % (0.0-2.0); HEMATOCRIT 33.9 % (36-46); HEMOGLOBIN 11.3 g/dL (12.0-16.0); LYMPHOCYTES # (AUTO) 3.7 K/uL (1.0-4.8); LYMPHOCYTES % (AUTO) 36.8 % (22.0-44.0); MEAN CORPUSCULAR HEMOGLOBIN 28.4 pg (26.0-34.0); MEAN CORPUSCULAR HGB CONC 33.3 G/dL (31.0-37.0); MEAN CORPUSCULAR VOLUME 85 fL (80-100); MONOCYTES # (AUTO) 0.7 K/uL (0.1-1.0); MONOCYTES % (AUTO) 7.5 % (2.0-9.0); NEUTROPHILS % (AUTO) 50.3 % (40.0-70.0); PLATELET COUNT (AUTO) 329 K/uL (150-450); RED BLOOD CELL COUNT(AUTO) 3.97 MIL/uL (4.00-5.20); RED CELL DISTRIBUTION WIDTH 15.9 % (11.5-14.5)
[2019-08-03 05:42] LABS: ANION GAP 9 mmol/L (8-16); CALCIUM, TOTAL 8.7 mg/dL (8.8-10.5); CARBON DIOXIDE 25 mmol/L (22-29); CHLORIDE 106 mmol/L (98-107); CREATININE 0.37 mg/dL (0.60-1.30); GLOMERULAR FILTR. RATE CALC > 60 mL/min (>60); GLUCOSE,RANDOM 142 mg/dL (70-110); POTASSIUM 3.2 mmol/L (3.5-5.1); SODIUM SERUM 140 mmol/L (136-145); UREA NITROGEN, BLOOD 8 mg/dL (7-18)
[2019-08-03] MEDS: BUDESONIDE 0.5 MG/2 ML NEB SOLUTION NEB SCH ×2 (07:53→20:09)
[2019-08-03] MEDS: HEPARIN SODIUM,PORCINE 5,000 UNITS/ML VIAL SQ SCH ×3 (08:00→23:40)
[2019-08-03] MEDS: METOCLOPRAMIDE HCL 5 MG/ML 2 ML VIAL IVP SCH ×3 (08:55→23:40)
[2019-08-03] MEDS: FAMOTIDINE 20 MG TABLET PO SCH (08:55)
[2019-08-03] MEDS: DOCUSATE SODIUM 100 MG CAPSULE PO SCH ×2 (08:56→20:42)
[2019-08-03] MEDS: THIAMINE HCL 100 MG/ML 2ML VIAL IVP SCH (08:57)
[2019-08-03] MEDS: POTASSIUM CHL 10 MEQ/WATER 50 ML IV PRN ×3 (11:35→13:40)
[2019-08-04] VITALS: BP 94/47
[2019-08-04] MEDS: MetroNIDAZOLE 500 MG/NACL 100 ML IV SCH ×3 (00:44→17:51)
[2019-08-04] MEDS: FentaNYL CITRATE PF 500 MCG in DEXTROSE 5%-WATER 90 ML IV PRN ×4 (01:26→19:02)
[2019-08-04] MEDS: IPRATROPIUM BROMIDE 0.5 MG/2.5 ML NEB SOLUTION NEB SCH ×4 (02:27→19:46)
[2019-08-04] MEDS: ALBUTEROL SULFATE 2.5 MG/0.5 ML NEB SOLUTION NEB SCH ×4 (02:27→19:46)
[2019-08-04] MEDS: CefTRIAXone 1 GM/DEXTROSE 50 ML IV SCH (02:39)
[2019-08-04 04:00] VITALS: BP 103/55
[2019-08-04 06:01] LABS: BASOPHILS % (AUTO) 0.4 % (0.0-2.0); EOSINOPHILS % (AUTO) 4.6 % (1.0-6.0); HEMATOCRIT 33.7 % (36-46); HEMOGLOBIN 10.9 g/dL (12.0-16.0); LYMPHOCYTES # (AUTO) 3.1 K/uL (1.0-4.8); LYMPHOCYTES % (AUTO) 27.1 % (22.0-44.0); MEAN CORPUSCULAR HEMOGLOBIN 27.8 pg (26.0-34.0); MEAN CORPUSCULAR HGB CONC 32.5 G/dL (31.0-37.0); MEAN CORPUSCULAR VOLUME 86 fL (80-100); MONOCYTES # (AUTO) 0.9 K/uL (0.1-1.0); MONOCYTES % (AUTO) 7.7 % (2.0-9.0); NEUTROPHILS # (AUTO) 6.8 K/uL (1.8-7.7); NEUTROPHILS % (AUTO) 60.2 % (40.0-70.0); PLATELET COUNT (AUTO) 327 K/uL (150-450); RED BLOOD CELL COUNT(AUTO) 3.93 MIL/uL (4.00-5.20)
[2019-08-04] MEDS: PROPOFOL 1000 MG/ISO-OSM 100 ML IV PRN ×3 (06:04→21:13)
[2019-08-04 06:10] LABS: ANION GAP 12 mmol/L (8-16); CALCIUM, TOTAL 8.5 mg/dL (8.8-10.5); CARBON DIOXIDE 22 mmol/L (22-29); CHLORIDE 109 mmol/L (98-107); CREATININE 0.28 mg/dL (0.60-1.30); GLOMERULAR FILTR. RATE CALC > 60 mL/min (>60); GLUCOSE,RANDOM 114 mg/dL (70-110); SODIUM SERUM 143 mmol/L (136-145); UREA NITROGEN, BLOOD 8 mg/dL (7-18)
[2019-08-04 08:00] VITALS: BP 110/68
[2019-08-04] MEDS: MAGNESIUM SULFATE 2 GM/WATER 50 ML IV PRN (08:06)
[2019-08-04] MEDS: FAMOTIDINE 20 MG TABLET PO SCH (08:06)
[2019-08-04] MEDS: THIAMINE HCL 100 MG/ML 2ML VIAL IVP SCH (08:07)
[2019-08-04] MEDS: HEPARIN SODIUM,PORCINE 5,000 UNITS/ML VIAL SQ SCH ×2 (08:07→15:54)
[2019-08-04] MEDS: METOCLOPRAMIDE HCL 5 MG/ML 2 ML VIAL IVP SCH ×2 (08:07→15:54)
[2019-08-04] MEDS: DOCUSATE SODIUM 100 MG CAPSULE PO SCH ×2 (08:07→20:59)
[2019-08-04] MEDS: BUDESONIDE 0.5 MG/2 ML NEB SOLUTION NEB SCH ×2 (08:37→20:12)
[2019-08-04] MEDS ORDERED: SODIUM CHLORIDE 0.9% 250 ML IV ONE ×2 (12:02→21:02)
[2019-08-04 12:39] VITALS: BP 94/51
[2019-08-04 16:00] VITALS: BP 100/52
[2019-08-04 20:00] VITALS: BP 101/51
[2019-08-04 21:35] LABS: PROTHROMBIN TIME 10.7 SEC (9.4-11.6)
[2019-08-05] VITALS: BP 99/52
[2019-08-05] MEDS: METOCLOPRAMIDE HCL 5 MG/ML 2 ML VIAL IVP SCH ×4 (00:05→23:22)
[2019-08-05] MEDS: MetroNIDAZOLE 500 MG/NACL 100 ML IV SCH ×3 (00:05→16:11)
[2019-08-05] MEDS: ALBUTEROL SULFATE 2.5 MG/0.5 ML NEB SOLUTION NEB SCH ×4 (01:21→19:41)
[2019-08-05] MEDS: IPRATROPIUM BROMIDE 0.5 MG/2.5 ML NEB SOLUTION NEB SCH ×4 (01:21→19:41)
[2019-08-05] MEDS: CefTRIAXone 1 GM/DEXTROSE 50 ML IV SCH (01:33)
[2019-08-05] MEDS: FentaNYL CITRATE PF 500 MCG in DEXTROSE 5%-WATER 90 ML IV PRN ×3 (02:36→23:46)
[2019-08-05 04:00] VITALS: BP 110/67
[2019-08-05] MEDS: PROPOFOL 1000 MG/ISO-OSM 100 ML IV PRN ×3 (05:34→20:31)
[2019-08-05 08:00] VITALS: BP 106/59
[2019-08-05] MEDS: BUDESONIDE 0.5 MG/2 ML NEB SOLUTION NEB SCH ×2 (08:43→19:40)
[2019-08-05] MEDS: DOCUSATE SODIUM 100 MG CAPSULE PO SCH ×2 (09:00→20:12)
[2019-08-05] MEDS: THIAMINE HCL 100 MG/ML 2ML VIAL IVP SCH (09:22)
[2019-08-05] MEDS: FAMOTIDINE 20 MG TABLET PO SCH (09:23)
[2019-08-05] MEDS ORDERED: VECURONIUM BROMIDE 10 MG/VIAL ONE (09:34)
[2019-08-05 12:00] VITALS: BP 107/68
[2019-08-05] MEDS ORDERED: VECURONIUM BROMIDE 10 MG/VIAL IVP ONE (12:00)
[2019-08-05 16:23] VITALS: BP 113/66
[2019-08-05 20:00] VITALS: BP 121/69
[2019-08-06] VITALS: BP 95/56
[2019-08-06] MEDS: MetroNIDAZOLE 500 MG/NACL 100 ML IV SCH ×3 (00:25→16:20)
[2019-08-06] MEDS ORDERED: SODIUM CHLORIDE 0.9% 250 ML IV ONE (00:32)
[2019-08-06] MEDS: CefTRIAXone 1 GM/DEXTROSE 50 ML IV SCH (01:36)
[2019-08-06] MEDS: ALBUTEROL SULFATE 2.5 MG/0.5 ML NEB SOLUTION NEB SCH ×4 (02:00→20:07)
[2019-08-06] MEDS: IPRATROPIUM BROMIDE 0.5 MG/2.5 ML NEB SOLUTION NEB SCH ×4 (02:00→20:07)
[2019-08-06] MEDS: PROPOFOL 1000 MG/ISO-OSM 100 ML IV PRN ×4 (03:41→21:39)
[2019-08-06 04:00] VITALS: BP 92/53
[2019-08-06 06:08] LABS: BASOPHILS % (AUTO) 0.6 % (0.0-2.0); EOSINOPHILS % (AUTO) 3.4 % (1.0-6.0); HEMATOCRIT 33.1 % (36-46); HEMOGLOBIN 10.9 g/dL (12.0-16.0); LYMPHOCYTES # (AUTO) 2.5 K/uL (1.0-4.8); LYMPHOCYTES % (AUTO) 24.9 % (22.0-44.0); MEAN CORPUSCULAR HEMOGLOBIN 28.3 pg (26.0-34.0); MEAN CORPUSCULAR HGB CONC 32.8 G/dL (31.0-37.0); MEAN CORPUSCULAR VOLUME 86 fL (80-100); MONOCYTES % (AUTO) 9.9 % (2.0-9.0); NEUTROPHILS # (AUTO) 6.1 K/uL (1.8-7.7); NEUTROPHILS % (AUTO) 61.2 % (40.0-70.0); PLATELET COUNT (AUTO) 346 K/uL (150-450); RED BLOOD CELL COUNT(AUTO) 3.84 MIL/uL (4.00-5.20); RED CELL DISTRIBUTION WIDTH 15.8 % (11.5-14.5)
[2019-08-06 06:20] LABS: ANION GAP 9 mmol/L (8-16); CARBON DIOXIDE 24 mmol/L (22-29); CHLORIDE 107 mmol/L (98-107); CREATININE 0.34 mg/dL (0.60-1.30); GLOMERULAR FILTR. RATE CALC > 60 mL/min (>60); GLUCOSE,RANDOM 116 mg/dL (70-110); POTASSIUM 3.8 mmol/L (3.5-5.1); SODIUM SERUM 140 mmol/L (136-145); UREA NITROGEN, BLOOD 7 mg/dL (7-18)
[2019-08-06] MEDS: BUDESONIDE 0.5 MG/2 ML NEB SOLUTION NEB SCH ×2 (07:21→20:07)
[2019-08-06 08:00] VITALS: BP 112/70
[2019-08-06 08:36] LABS: ABG A-A DIFF O2 116.3 mmHg (10-20.0); ABG BASE EXCESS -4.2 mmol/L (-2.0-3.0); ABG CARBOXYHEMOGLOBIN 0.6 % (0.0-1.5); ABG OXYGEN SATURATION 97.7 % (95.0-98.0); ABG OXYHEMOGLOBIN 97.1 % (94.0-100.0); ABG PCO2 30 mmHg (35-45); ABG PH 7.442 (7.350-7.450); ABG TOTAL HEMOGLOBIN 14.6 G/dL (12.0-18.0); PO2, ARTERIAL BG 98.6 mmHg (92.0-100.0); SITE, BLOOD GAS RT RADIAL; SOURCE, BLOOD GAS ARTERIAL; TEMPERATURE, FAHRENHEIT, BG 98.6 FAHREN (96.0-98.6)
[2019-08-06 08:37] LABS: O2 DEVICE,BLOOD GAS VENTILATOR (ROOM AIR); PEEP,BG 5 cm H2O; VT, ABG 450 ml
[2019-08-06] MEDS: METOCLOPRAMIDE HCL 5 MG/ML 2 ML VIAL IVP SCH ×3 (08:43→23:35)
[2019-08-06] MEDS: THIAMINE HCL 100 MG/ML 2ML VIAL IVP SCH (08:43)
[2019-08-06] MEDS: FAMOTIDINE 20 MG TABLET PO SCH (08:44)
[2019-08-06] MEDS: DOCUSATE SODIUM 100 MG CAPSULE PO SCH ×2 (08:44→19:08)
[2019-08-06] MEDS: FentaNYL CITRATE PF 500 MCG in DEXTROSE 5%-WATER 90 ML IV PRN ×2 (10:48→18:07)
[2019-08-06 12:00] VITALS: BP 118/69
[2019-08-06 16:00] VITALS: BP 128/73
[2019-08-06] MEDS ORDERED: LIDOCAINE 2% 30 ML JELLY TP ONE (16:38)
[2019-08-06] MEDS ORDERED: BENZOCAINE 20% 50 MCG/SPRAY 57 GM TP ONE (16:38)
[2019-08-06] MEDS ORDERED: ALBUTEROL SULFATE 2.5 MG/0.5 ML NEB SOLUTION NEB ONE (16:38)
[2019-08-06 19:19] LABS: C.DIFF TOXINS A&B, Stool Negative (Negative)
[2019-08-06 19:22] LABS: C.DIFF GDH ANTIGEN, Stool Positive (Negative)
[2019-08-06 20:00] VITALS: BP 112/65
[2019-08-06] MEDS: VANCOMYCIN HCL 125 MG/2.5 ML SOLUTION ORAL.SYG PEG SCH (23:35)
[2019-08-07] VITALS (8 sets, daily range): BP systolic 98–137; BP diastolic 52–96
[2019-08-07] MEDS: FentaNYL CITRATE PF 500 MCG in DEXTROSE 5%-WATER 90 ML IV PRN ×2 (00:33→12:00)
[2019-08-07] MEDS: MetroNIDAZOLE 500 MG/NACL 100 ML IV SCH ×2 (00:39→08:54)
[2019-08-07] MEDS ORDERED: SODIUM CHLORIDE 0.9% 100 ML ONE (00:44)
[2019-08-07] MEDS: CefTRIAXone 1 GM/DEXTROSE 50 ML IV SCH (01:24)
[2019-08-07] MEDS: ALBUTEROL SULFATE 2.5 MG/0.5 ML NEB SOLUTION NEB SCH ×4 (01:53→20:39)
[2019-08-07] MEDS: IPRATROPIUM BROMIDE 0.5 MG/2.5 ML NEB SOLUTION NEB SCH ×4 (01:53→20:39)
[2019-08-07] MEDS: PROPOFOL 1000 MG/ISO-OSM 100 ML IV PRN (04:49)
[2019-08-07] MEDS: VANCOMYCIN HCL 125 MG/2.5 ML SOLUTION ORAL.SYG PEG SCH ×3 (05:24→18:37)
[2019-08-07] MEDS: BUDESONIDE 0.5 MG/2 ML NEB SOLUTION NEB SCH ×2 (07:35→20:39)
[2019-08-07 08:52] LABS: BASOPHILS % (AUTO) 2.8 % (0.0-2.0); EOSINOPHILS % (AUTO) 3.6 % (1.0-6.0); HEMATOCRIT 35.2 % (36-46); HEMOGLOBIN 11.6 g/dL (12.0-16.0); LYMPHOCYTES # (AUTO) 2.8 K/uL (1.0-4.8); LYMPHOCYTES % (AUTO) 28.3 % (22.0-44.0); MEAN CORPUSCULAR HEMOGLOBIN 28.4 pg (26.0-34.0); MEAN CORPUSCULAR HGB CONC 32.8 G/dL (31.0-37.0); MEAN CORPUSCULAR VOLUME 87 fL (80-100); MONOCYTES % (AUTO) 9.6 % (2.0-9.0); NEUTROPHILS # (AUTO) 5.5 K/uL (1.8-7.7); NEUTROPHILS % (AUTO) 55.7 % (40.0-70.0); PLATELET COUNT (AUTO) 354 K/uL (150-450); RED BLOOD CELL COUNT(AUTO) 4.06 MIL/uL (4.00-5.20); RED CELL DISTRIBUTION WIDTH 15.7 % (11.5-14.5)
[2019-08-07] MEDS: THIAMINE HCL 100 MG/ML 2ML VIAL IVP SCH (08:55)
[2019-08-07] MEDS: METOCLOPRAMIDE HCL 5 MG/ML 2 ML VIAL IVP SCH ×2 (08:55→16:24)
[2019-08-07] MEDS: DOCUSATE SODIUM 100 MG CAPSULE PO SCH ×2 (08:56→19:10)
[2019-08-07] MEDS: FAMOTIDINE 20 MG TABLET PO SCH (08:56)
[2019-08-07 09:07] LABS: ANION GAP 12 mmol/L (8-16); CALCIUM, TOTAL 9.2 mg/dL (8.8-10.5); CARBON DIOXIDE 23 mmol/L (22-29); CHLORIDE 107 mmol/L (98-107); CREATININE 0.34 mg/dL (0.60-1.30); GLOMERULAR FILTR. RATE CALC > 60 mL/min (>60); GLUCOSE,RANDOM 126 mg/dL (70-110); POTASSIUM 4.1 mmol/L (3.5-5.1); SODIUM SERUM 142 mmol/L (136-145); UREA NITROGEN, BLOOD 11 mg/dL (7-18)
[2019-08-07] MEDS ORDERED: HYDROmorphone 2 MG/ML SYRINGE IVP PRN (16:00)
[2019-08-07] MEDS ORDERED: FentaNYL 25 MCG/HOUR PATCH TD SCH (16:30)
[2019-08-07] MEDS: MAGNESIUM SULFATE 2 GM/WATER 50 ML IV PRN (16:53)
[2019-08-08] MEDS: VANCOMYCIN HCL 125 MG/2.5 ML SOLUTION ORAL.SYG PEG SCH ×2 (02:15→06:22)
[2019-08-08] MEDS: METOCLOPRAMIDE HCL 5 MG/ML 2 ML VIAL IVP SCH ×3 (02:18→16:36)
[2019-08-08] MEDS: IPRATROPIUM BROMIDE 0.5 MG/2.5 ML NEB SOLUTION NEB SCH ×3 (02:26→13:58)
[2019-08-08] MEDS: ALBUTEROL SULFATE 2.5 MG/0.5 ML NEB SOLUTION NEB SCH ×3 (02:26→13:58)
[2019-08-08 05:06] VITALS: BP 125/82
[2019-08-08 06:25] LABS: BASOPHILS % (AUTO) 0.4 % (0.0-2.0); EOSINOPHILS % (AUTO) 0.9 % (1.0-6.0); HEMATOCRIT 38.9 % (36-46); LYMPHOCYTES # (AUTO) 1.7 K/uL (1.0-4.8); LYMPHOCYTES % (AUTO) 12.7 % (22.0-44.0); MEAN CORPUSCULAR HEMOGLOBIN 28.8 pg (26.0-34.0); MEAN CORPUSCULAR HGB CONC 33.5 G/dL (31.0-37.0); MEAN CORPUSCULAR VOLUME 86 fL (80-100); MONOCYTES # (AUTO) 0.7 K/uL (0.1-1.0); MONOCYTES % (AUTO) 5.2 % (2.0-9.0); NEUTROPHILS # (AUTO) 10.9 K/uL (1.8-7.7); NEUTROPHILS % (AUTO) 80.8 % (40.0-70.0); PLATELET COUNT (AUTO) 435 K/uL (150-450); RED BLOOD CELL COUNT(AUTO) 4.52 MIL/uL (4.00-5.20); RED CELL DISTRIBUTION WIDTH 15.5 % (11.5-14.5)
[2019-08-08 06:46] LABS: ANION GAP 12 mmol/L (8-16); CALCIUM, TOTAL 9.4 mg/dL (8.8-10.5); CARBON DIOXIDE 25 mmol/L (22-29); CHLORIDE 105 mmol/L (98-107); CREATININE 0.29 mg/dL (0.60-1.30); GLOMERULAR FILTR. RATE CALC > 60 mL/min (>60); GLUCOSE,RANDOM 124 mg/dL (70-110); POTASSIUM 3.8 mmol/L (3.5-5.1); SODIUM SERUM 142 mmol/L (136-145); UREA NITROGEN, BLOOD 11 mg/dL (7-18)
[2019-08-08 07:45] VITALS: BP 131/57
[2019-08-08] MEDS: BUDESONIDE 0.5 MG/2 ML NEB SOLUTION NEB SCH (08:39)
[2019-08-08] MEDS: FAMOTIDINE 20 MG TABLET PO SCH (08:41)
[2019-08-08] MEDS: DOCUSATE SODIUM 100 MG CAPSULE PO SCH (08:42)
[2019-08-08] MEDS: THIAMINE HCL 100 MG/ML 2ML VIAL IVP SCH (09:44)
[2019-08-08 10:37] VITALS: BP 128/75
[2019-08-08] MEDS: MAGNESIUM SULFATE 2 GM/WATER 50 ML IV PRN (11:26)
[2019-08-08 14:47] VITALS: BP 135/89
[2019-08-08] MEDS ORDERED: BUDE0.5A3 NEB (15:35)
[2019-08-08] MEDS ORDERED: FAMO20TA8 PO (15:38)
[2019-08-08] MEDS ORDERED: FENT-76 TD (15:40)
[2019-08-08] MEDS ORDERED: IPRNEB IH (15:41)
[2019-08-08] MEDS ORDERED: METO5TAB95 PO (15:42)
[2019-08-08] MEDS ORDERED: METR500 PO (15:43)
[2019-08-08] MEDS ORDERED: THIA100T67 IVP (15:44)
[2019-08-08] MEDS ORDERED: MetroNIDAZOLE 500 MG TABLET PO SCH (16:00)
== END 2019-08-08 18:45 | DRG 5 ==
LOC: EMS 02:19 → ICU 06:37 → 5S 08-07 23:00
PROVIDERS: ADMIT Internal Medicine; ATTEND Internal Medicine
PROC: 5A1955Z Respiratory Ventilation, Greater than 96 Consecutive Hours (ICD-10-PCS; principal; 2019-07-28)
PROC: 0BH17EZ Insertion of Endotracheal Airway into Trachea, Via Natural or Artificial Opening (ICD-10-PCS; 2019-07-28)
PROC: B54MZZA Ultrasonography of Right Upper Extremity Veins, Guidance (ICD-10-PCS; 2019-07-28)
PROC: 05HY33Z Insertion of Infusion Device into Upper Vein, Percutaneous Approach (ICD-10-PCS; 2019-07-28)
PROC: B54MZZA Ultrasonography of Right Upper Extremity Veins, Guidance (ICD-10-PCS; 2019-08-02)
PROC: 05HY33Z Insertion of Infusion Device into Upper Vein, Percutaneous Approach (ICD-10-PCS; 2019-08-02)
PROC: 0B113F4 Bypass Trachea to Cutaneous with Tracheostomy Device, Percutaneous Approach (ICD-10-PCS; 2019-08-05)
PROC: 0BJ08ZZ Inspection of Tracheobronchial Tree, Via Natural or Artificial Opening Endoscopic (ICD-10-PCS; 2019-08-05)
DX: A41.9 Sepsis, unspecified organism (principal); J69.0 Pneumonitis due to inhalation of food and vomit; E43 Unspecified severe protein-calorie malnutrition; F84.2 Rett's syndrome; J96.00 Acute respiratory failure, unspecified whether with hypoxia or hypercapnia; G80.9 Cerebral palsy, unspecified; N39.0 Urinary tract infection, site not specified; R13.10 Dysphagia, unspecified; A04.72 Enterocolitis due to Clostridium difficile, not specified as recurrent; E87.6 Hypokalemia; F20.9 Schizophrenia, unspecified; Z93.1 Gastrostomy status; Z98.1 Arthrodesis status; Z99.11 Dependence on respirator [ventilator] status; Z74.01 Bed confinement status
CPT/HCPCS: 36245; 36569; 36600; 76937; 82805; 83605; 83735; 84100; 84132; 87040; 87070; 87081; 87086; 87205; 87324; 87449; 87635; 93005; 94002; 94003; 94640; 96365; 99291; G0378; J0456; J0692; J0696; J1170; J1644; J2704; J2765; J2930; J3010; J3411; J3475; J3480; J3490; J7030; J7040; J7050; J7060

== ENCOUNTER → 2020-09-05 | Outpatient (CLI) | payer MEDICAID ==
[~2020-09-05] MED LIST changes: +ACET-2247 GT; -ACET-2247 PO; -ACID1GRA GT; +ARGI1POW13 GT; -CHOL200078 GT; +CLIN300C3 PO; +CLIN600P10 IV; +DOCU-275 PO; +FE PR; +FENT1PAT25 TD; -FLUC100T GT; +FLUT1DIS6 IH; +LEVO750T68 GT; -LOPE-202 GT; +MAGN400T7 GT; +MAGN400T7 PO; +METO5TAB95 GT; +MOM30 GT; -MULT-1203 PEG; +PANT20TA18 GT; -PANT40TA25 PO; -PARO10TA71 GT; -PRED1 PO; -PRED10 PO; -PRED20 PO; -PRED5 PO; -RISP1 GT; +THIA50TA13 GT; +TRIA15CR49 TP; -VANC250C13 GT
== END | disposition home or self-care (01) ==
LOC: RADPV 09:43
PROVIDERS: ATTEND Family Medicine
DX: M81.0 Age-related osteoporosis without current pathological fracture (principal); M85.80 Other specified disorders of bone density and structure, unspecified site
CPT/HCPCS: 77080

== ENCOUNTER 2022-11-13 06:16 | Day surgery (SDC) | payer OTHER ==
[~2022-11-13] VITALS: Ht 147.3 cm; Wt 55.0 kg
[~2022-11-13 06:16] MED LIST changes: +ALBU18HF12 IH; -ALBU8HFA IH; -CLIN300C3 PO; +CLIN300C58 PO; -DOCU-275 PO; +DOCU-385 PO; -FE PR; +MAGN-169 GT; -MOM30 GT; +NA P266E PR
[2022-11-13] MEDS ORDERED: RINGERS SOLUTION,LACTATED 1,000 ML IV ONE ×2 (06:30→07:36)
[2022-11-13 07:55] LABS: BASOPHILS % (AUTO) 0.5 % (0.0-2.0); EOSINOPHILS % (AUTO) 2.4 % (1.0-6.0); HEMATOCRIT 43.7 % (36-46); HEMOGLOBIN 14.6 g/dL (12.0-16.0); LYMPHOCYTES # (AUTO) 2.5 K/uL (1.0-4.8); LYMPHOCYTES % (AUTO) 29.1 % (22.0-44.0); MEAN CORPUSCULAR HEMOGLOBIN 30.9 pg (26.0-34.0); MEAN CORPUSCULAR HGB CONC 33.3 G/dL (31.0-37.0); MEAN CORPUSCULAR VOLUME 93 fL (80-100); MONOCYTES # (AUTO) 0.6 K/uL (0.1-1.0); MONOCYTES % (AUTO) 6.4 % (2.0-9.0); NEUTROPHILS # (AUTO) 5.3 K/uL (1.8-7.7); NEUTROPHILS % (AUTO) 61.6 % (40.0-70.0); PLATELET COUNT (AUTO) 254 K/uL (150-450); RED BLOOD CELL COUNT(AUTO) 4.72 MIL/uL (4.00-5.20); RED CELL DISTRIBUTION WIDTH 12.7 % (11.5-14.5)
[2022-11-13] MEDS ORDERED: BISA10SU11 PR (07:55)
[2022-11-13] MEDS ORDERED: ALEN70TA65 PO (07:55)
[2022-11-13] MEDS ORDERED: DIPH25CA53 GT (07:55)
[2022-11-13] MEDS ORDERED: GLYC1TAB27 GT (07:55)
[2022-11-13] MEDS ORDERED: BACL10TA GT (07:55)
[2022-11-13] MEDS ORDERED: BUDE0.5A NEB (07:55)
[2022-11-13 08:10] LABS: PROTHROMBIN TIME 10.9 SEC (9.4-11.6)
[2022-11-13 08:18] LABS: ANION GAP 11 mmol/L (8-16); CALCIUM, TOTAL 9.2 mg/dL (8.8-10.5); CARBON DIOXIDE 26 mmol/L (22-29); CHLORIDE 105 mmol/L (98-107); CREATININE 0.32 mg/dL (0.60-1.30); GLOMERULAR FILTR. RATE CALC > 60 mL/min (>60); GLUCOSE,RANDOM 118 mg/dL (70-110); POTASSIUM 4.5 mmol/L (3.5-5.1); SODIUM SERUM 142 mmol/L (136-145)
[2022-11-13] MEDS ORDERED: PROP10TA73 GT (08:18)
[2022-11-13] MEDS ORDERED: MONT-35 GT (08:18)
[2022-11-13] MEDS ORDERED: SENN-376 GT (08:18)
[2022-11-13] MEDS ORDERED: OS500 GT (08:18)
[2022-11-13] MEDS ORDERED: MELA5TAB40 GT (08:18)
[2022-11-13] MEDS ORDERED: CHOL200059 GT (08:21)
[2022-11-13] MEDS ORDERED: [UNRECOGNIZED DRUG - CODE] GT (08:21)
[2022-11-13 08:22] LABS: ALANINE AMINOTRANSFERASE 34 U/L (12-78); ALBUMIN 3.5 g/dL (3.4-5.0); ALKALINE PHOSPHATASE 143 U/L (46-116); ASPARTATE AMINOTRANSFERASE 22 U/L (15-37); BILIRUBIN,TOTAL 0.4 mg/dL (0.1-1.0); TOTAL PROTEIN, SERUM 7.2 g/dL (6.4-8.2)
[2022-11-13] MEDS ORDERED: MULT-413 GT (08:22)
[2022-11-13] MEDS ORDERED: ASCO500 GT (08:22)
[2022-11-13] MEDS ORDERED: CLINDAMYCIN 600 MG/D5% WATER 50 ML IV ONE (09:00)
== END 2022-11-13 11:20 | disposition home or self-care (01) ==
LOC: SURGERY 06:16
PROVIDERS: ATTEND Dentist General Practice
DX: K05.30 Chronic periodontitis, unspecified (principal); Z79.01 Long term (current) use of anticoagulants; Z79.899 Other long term (current) drug therapy; Z98.890 Other specified postprocedural states; J96.10 Chronic respiratory failure, unspecified whether with hypoxia or hypercapnia; Z93.1 Gastrostomy status; F84.2 Rett's syndrome; M85.88 Other specified disorders of bone density and structure, other site; Z88.8 Allergy status to other drugs, medicaments and biological substances
CPT/HCPCS: 41899; 71045; 80053; 84703; 85025; 85610; 85730; 36415; 93005; J3490; J7120

== ENCOUNTER 2024-02-25 05:55 | Day surgery (SDC) | payer OTHER ==
[~2024-02-25] VITALS: Ht 147.3 cm; Wt 55.9 kg
[~2024-02-25 05:55] MED LIST changes: +ALEN70TA65 PO; -ARGI1POW13 GT; +ASCO500 GT; +BACL10TA GT; +BISA10SU11 PR; +BUDE0.5A NEB; +CHOL200059 GT; -CLIN300C58 PO; -CLIN600P10 IV; +DIPH25CA53 GT; -DOCU-385 PO; -FENT1PAT25 TD; -FLUT1DIS6 IH; +GLYC1TAB27 GT; -LEVO750T68 GT; -MAGN-169 GT; -MAGN400T7 PO; +MELA5TAB40 GT; +MONT-35 GT; +MULT-413 GT; -NA P266E PR; +OS500 GT; -PANT20TA18 GT; +PROP10TA73 GT; +SENN-376 GT; -TRIA15CR49 TP; +VITA90CA4 GT
[2024-02-25] MEDS ORDERED: CLINDAMYCIN 600 MG/D5% WATER 50 ML IV ONE (06:45)
[2024-02-25 08:04] LABS: BASOPHILS % (AUTO) 0.5 % (0.0-2.0); EOSINOPHILS % (AUTO) 4.4 % (1.0-6.0); HEMOGLOBIN 14.3 g/dL (12.0-16.0); LYMPHOCYTES # (AUTO) 2.2 K/uL (1.0-4.8); LYMPHOCYTES % (AUTO) 29.7 % (22.0-44.0); MEAN CORPUSCULAR HEMOGLOBIN 30.5 pg (26.0-34.0); MEAN CORPUSCULAR HGB CONC 33.2 G/dL (31.0-37.0); MEAN CORPUSCULAR VOLUME 92 fL (80-100); MONOCYTES # (AUTO) 0.6 K/uL (0.1-1.0); MONOCYTES % (AUTO) 7.6 % (2.0-9.0); NEUTROPHILS # (AUTO) 4.2 K/uL (1.8-7.7); NEUTROPHILS % (AUTO) 57.8 % (40.0-70.0); PLATELET COUNT (AUTO) 261 K/uL (150-450); RED BLOOD CELL COUNT(AUTO) 4.68 MIL/uL (4.00-5.20); RED CELL DISTRIBUTION WIDTH 14.2 % (11.5-14.5); WHITE BLOOD COUNT (AUTO) 7.3 K/uL (4.5-11.0)
[2024-02-25 08:15] LABS: PROTHROMBIN TIME 10.9 SEC (9.4-11.6)
[2024-02-25] MEDS ORDERED: RINGERS SOLUTION,LACTATED 1,000 ML IV ONE (08:19)
[2024-02-25] MEDS ORDERED: ONDANSETRON HCL 4 MG/2 ML VIAL ONE (08:35)
[2024-02-25] MEDS ORDERED: LIDOCAINE/PF 2% 5 ML SYRINGE IVP ONE (08:35)
[2024-02-25] MEDS ORDERED: PROPOFOL 1% ISO-OSM 1000 MG/100 ML BOTTLE ONE (08:35)
[2024-02-25] MEDS ORDERED: SUGAMMADEX SODIUM 200 MG/2 ML VIAL IVP ONE (08:35)
[2024-02-25] MEDS ORDERED: GLYCOPYRROLATE 0.2 MG/ML VIAL ONE (08:35)
[2024-02-25] MEDS ORDERED: ROCURONIUM BROMIDE 10 MG/ML 5 ML VIAL ONE (08:35)
[2024-02-25 08:41] LABS: ALANINE AMINOTRANSFERASE 32 U/L (12-78); ALBUMIN 3.3 g/dL (3.4-5.0); ALKALINE PHOSPHATASE 150 U/L (46-116); ANION GAP 13 mmol/L (8-16); ASPARTATE AMINOTRANSFERASE 26 U/L (15-37); BILIRUBIN,TOTAL 0.4 mg/dL (0.1-1.0); CALCIUM, TOTAL 9.8 mg/dL (8.8-10.5); CARBON DIOXIDE 25 mmol/L (22-29); CHLORIDE 101 mmol/L (98-107); CREATININE 0.46 mg/dL (0.60-1.30); GLOMERULAR FILTR. RATE CALC > 60 mL/min (>60); GLUCOSE,RANDOM 91 mg/dL (70-110); POTASSIUM 3.8 mmol/L (3.5-5.1); SODIUM SERUM 139 mmol/L (136-145); TOTAL PROTEIN, SERUM 7.7 g/dL (6.4-8.2); UREA NITROGEN, BLOOD 12 mg/dL (7-18)
[2024-02-25] MEDS: RINGERS SOLUTION,LACTATED 1,000 ML IV ONE (09:15)
== END 2024-02-25 12:45 | disposition home or self-care (01) ==
LOC: SURGERY 05:55
PROVIDERS: ATTEND Dentist General Practice
DX: K02.9 Dental caries, unspecified (principal); K05.20 Aggressive periodontitis, unspecified; M85.80 Other specified disorders of bone density and structure, unspecified site; Z93.1 Gastrostomy status; Z88.1 Allergy status to other antibiotic agents; Z88.8 Allergy status to other drugs, medicaments and biological substances
CPT/HCPCS: 71045; 80053; 84703; 85025; 85610; 85730; 93005; J2405; J2704; J3490; J7120; 36415-L1; 36415-TC